=== PATIENT | female | born 1970 | race Caucasian/White ===

== ENCOUNTER 2022-08-19 12:52 | Emergency (ER) | payer BC ==
--- NOTE | 2022-08-19 13:19 | ERPHSYRPT ---
- History of Present Illness Time Seen by Provider: 08/19/22 13:19 Historian: patient, family Exam Limitations: no limitations Physician History: This is a morbidly obese 52-year-old white female has a history of diverticulitis, colitis and ureteral stones in the past and presents with 4 to 5-day history of bilateral lower quadrant abdominal pain and intermittent bloody stools. Patient states the pain was most severe today so she came into the emergency room for evaluation. Patient is a history of hypertension anxiety as well. She states that she is allergic to morphine and cannot take Dilaudid which she has tolerated in the past. She has no chest pain she has no shortness of breath. She has not had any vomiting. She has not had fevers. Patient states that she has Percocet at home that she uses on an as-needed basis for chronic back pain Timing/Duration: day(s) (4 to 5 days) Activities at Onset: none Quality: aching, cramping Abdominal Pain Onset Location: RLQ, LLQ Pain Radiation: no radiation Severity of Pain-Max: moderate Severity of Pain-Current: moderate Modifying Factors: Improves With: nothing Associated Symptoms: No chest pain, No diarrhea, No fever/chills, No shortness of breath, No vomiting, No weakness Previous symptoms: same symptoms as today Allergies/Adverse Reactions: morphine Allergy (Severe, Verified 08/19/22 13:24) Rash divalproex sodium [From Depakote] Adverse Reaction (Mild, Verified 08/19/22 13:24) Fatigue ketorolac [From Toradol] Adverse Reaction (Mild, Verified 08/19/22 13:24) Vomiting phenytoin [From Dilantin] Adverse Reaction (Mild, Verified 08/19/22 13:24) Fatigue Home Medications: Bupropion HCl 150 mg Sr [Wellbutrin SR 150 MG] 150 mg PO BID 08/19/22 [History] Clonazepam [Klonopin] 2 mg PO DAILY 08/19/22 [History] Olanzapine Odt 5 mg [Zyprexa Zydis 5 MG] 5 mg PO DAILY 08/19/22 [History] Pregabalin [Lyrica 150Mg] 150 mg PO DAILY 08/19/22 [History] Sertraline HCl [Zoloft] 200 mg PO DAILY 08/19/22 [History] Triamterene/Hydrochlorothiazid [Maxzide 37.5 mg-25 mg Tablet] 1 each PO DAILY 08/19/22 [History] Travel Risk - International Travel Have you traveled outside of the country in past 3 weeks: No - Coronavirus Screening Are you exhibiting any of the following symptoms?: No Close contact with a COVID-19 positive Pt in past 14-21 Days: No - Review of Systems Constitutional: No Symptoms Eyes: No Symptoms Ears, Nose, & Throat: No Symptoms Respiratory: No Symptoms Cardiac: No Symptoms Abdominal/Gastrointestinal: Abdominal Pain, Hematochezia (Intermittent episodes), No Nausea, No Vomiting, No Diarrhea, No Constipation Genitourinary Symptoms: No Symptoms Musculoskeletal: No Symptoms Skin: No Symptoms Neurological: No Symptoms Psychological: No Symptoms Endocrine: No Symptoms Hematologic/Lymphatic: No Symptoms Immunological/Allergic: No Symptoms All Other Systems: Reviewed and Negative - Past Medical History Pertinent Past Medical History: Yes - Past Surgical History Past Surgical History: Yes - Nursing Vital Signs Nursing Vital Signs: Initial Vital Signs Temperature 98.0 F 08/19/22 13:04 Pulse Rate 78 08/19/22 13:04 Respiratory Rate 20 08/19/22 13:04 Blood Pressure 151/85 08/19/22 13:04 O2 Sat by Pulse Oximetry 96 08/19/22 13:04 Pain Scale Pain Intensity 10 - Physical Exam General Appearance: no apparent distress, alert, anxiety, obese Eye Exam: PERRL/EOMI, eyes nml inspection Ears, Nose, Throat Exam: normal ENT inspection, moist mucous membranes Neck Exam: normal inspection, non-tender, supple, full range of motion Respiratory Exam: normal breath sounds, lungs clear, airway intact, No chest tenderness, No respiratory distress Cardiovascular Exam: regular rate/rhythm, normal heart sounds, normal peripheral pulses Gastrointestinal/Abdomen Exam: soft, normal bowel sounds, tenderness (Bilateral lower quadrant to palpation), guarding (Lateral lower quadrant to palpation), No rebound Pelvic Exam: not done Rectal Exam: not done Back Exam: normal inspection, normal range of motion, No CVA tenderness, No vertebral tenderness Extremity Exam: normal inspection, normal range of motion, pelvis stable Neurologic Exam: alert, oriented x 3, cooperative, color worker II-XII nml as tested, normal mood/affect, nml cerebellar function, nml station & gait, sensation nml Skin Exam: normal color, warm, dry Lymphatic Exam: No adenopathy SpO2 Interpretation: normal O2 Delivery: Room Air - Course Nursing assessment & vital signs reviewed: Yes Ordered Tests: Active Orders 24 hr Category Date Time Status IV Insertion STAT Care 08/19/22 13:37 Active ABDOMEN AND PELVIS W/0 CONTRAS [CT] Stat Exams 08/19/22 13:38 Taken AMYLASE Stat Lab 08/19/22 13:55 Completed CBC W DIFF Stat Lab 08/19/22 13:55 Completed CMP Stat Lab 08/19/22 13:55 Completed LIPASE Stat Lab 08/19/22 13:55 Completed Lactic Acid Stat Lab 08/19/22 14:00 Completed UA W/RFX CULTURE Stat Lab 08/19/22 13:15 Completed Medication Summary Generic Name Dose Route Start Last Admin Trade Name Freq PRN Reason Stop Dose Admin Piperacillin Sod/Tazobactam 100 mls @ 200 mls/hr 08/19/22 15:42 Sod 3.375 gm/ Sodium Chloride IV 08/19/22 16:11 STAT ONE Discontinued Medications Generic Name Dose Route Start Last Admin Trade Name Freq PRN Reason Stop Dose Admin Hydromorphone HCl 1 mg 08/19/22 13:37 08/19/22 14:10 Hydromorphone 1 Mg/1ml Inj 1 Mg/Ml Syringe IV 08/19/22 13:38 1 mg STAT ONE Administration Hydromorphone HCl Confirm 08/19/22 14:05 Hydromorphone 1 Mg/1ml Inj 1 Mg/Ml Syringe Administered 08/19/22 14:06 Dose 1 mg .ROUTE .STK-MED ONE Hydromorphone HCl 1 mg 08/19/22 15:43 Hydromorphone 1 Mg/1ml Inj 1 Mg/Ml Syringe IV 08/19/22 15:44 STAT ONE Sodium Chloride 1,000 mls @ 999 mls/hr 08/19/22 13:37 08/19/22 14:09 Sodium Chloride 0.9% 1000 Ml IV 08/19/22 14:37 999 mls/hr .Q1H1M STA Administration Sodium Chloride Confirm 08/19/22 14:06 Sodium Chloride 0.9% 1000 Ml Administered 08/19/22 14:07 Dose 1,000 mls @ ud .ROUTE .STK-MED ONE Ondansetron HCl 4 mg 08/19/22 13:37 08/19/22 14:10 Ondansetron Hcl 4 Mg/2 Ml Vial IV 08/19/22 13:38 4 mg STAT ONE Administration Ondansetron HCl Confirm 08/19/22 14:05 Ondansetron Hcl 4 Mg/2 Ml Vial Administered 08/19/22 14:06 Dose 4 mg .ROUTE .STK-MED ONE Prochlorperazine Edisylate 5 mg 08/19/22 15:43 Prochlorperazine Edisylate 10 Mg/2 Ml Vial IV 08/19/22 15:44 STAT ONE Lab/Rad Data: Laboratory Result Diagrams 08/19/22 13:55 08/19/22 13:55 Laboratory Results 08/19/22 08/19/22 08/19/22 Range/Units 14:00 13:55 13:55 WBC 7.6 (4.0-10.5) x10^3/uL RBC 4.82 (4.1-5.4) x10^6/uL Hgb 12.7 (12.0-16.0) g/dL Hct 42.4 (35-47) % MCV 88.0 (78-100) fL MCH 26.3 (26-32) pg MCHC 30.0 L (32-36) g/dL RDW 15.8 H (11.5-14.0) % Plt Count 346 (150-450) x10^3/uL MPV 10.8 (7.5-11.0) fL Gran % 66.0 (36.0-66.0) % Immature Gran % (Auto) 0.3 (0.00-0.4) % Nucleat RBC Rel Count 0.0 (0.00-0.1) % Eos # (Auto) 0.18 (0-0.5) x10^3/uL Immature Gran # (Auto) 0.02 (0.00-0.03) x10^3u/L Absolute Lymphs (auto) 1.82 (1.0-4.6) x10^3/uL Absolute Monos (auto) 0.48 (0.0-1.3) x10^3/uL Absolute Nucleated RBC 0.00 (0.00-0.01) x10^3u/L Lymphocytes % 23.9 L (24.0-44.0) % Monocytes % 6.3 (0.0-12.0) % Eosinophils % 2.4 (0.00-5.0) % Basophils % 1.1 (0.0-0.4) % Absolute Granulocytes 5.03 (1.4-6.9) x10^3/uL Basophils # 0.08 (0-0.4) x10^3/uL Sodium 142 (137-145) mmol/L Potassium 3.6 (3.5-5.1) mmol/L Chloride 112 H (98-107) mmol/L Carbon Dioxide 19 L (22-30) mmol/L Anion Gap 14.6 (5-15) MEQ/L BUN 19 H (7-17) mg/dL Creatinine 0.56 (0.52-1.04) mg/dL Estimated GFR > 60.0 ML/MIN Glucose 79 (74-106) mg/dL Lactic Acid 1.7 (0.4-2.0) Calcium 9.4 (8.4-10.2) mg/dL Total Bilirubin 0.40 (0.2-1.3) mg/dL AST 17 (14-36) U/L ALT 15 (0-35) U/L Alkaline Phosphatase 91 (38-126) U/L Serum Total Protein 7.3 (6.3-8.2) g/dL Albumin 4.1 (3.5-5.0) g/dL Amylase 91 (30-110) U/L Lipase 92 (23-300) U/L Urinalys Dipstick Clnc Urine Color (YELLOW) Urine Appearance (CLEAR) Urine pH (5-6) Ur Specific [place] (1.005-1.025) POC Urine Protein Conf (Negative) Urine Ketones (NEGATIVE) Urine Nitrite (NEGATIVE) Urine Bilirubin (NEGATIVE) Urine Urobilinogen (0-1) mg/dL Urine Leukocytes (NEGATIVE) Urine WBC (Auto) (0-5) /HPF Urine RBC (Auto) (0-2) /HPF U Epithel Cells (Auto) (FEW) /HPF Urine Bacteria (Auto) (NEGATIVE) /HPF Urine RBC (0-5) Issac/ul Ur Culture Indicated? Urine Glucose (NEGATIVE) mg/dL 08/19/22 Range/Units 13:15 WBC (4.0-10.5) x10^3/uL RBC (4.1-5.4) x10^6/uL Hgb (12.0-16.0) g/dL Hct (35-47) % MCV (78-100) fL MCH (26-32) pg MCHC (32-36) g/dL RDW (11.5-14.0) % Plt Count (150-450) x10^3/uL MPV (7.5-11.0) fL Gran % (36.0-66.0) % Immature Gran % (Auto) (0.00-0.4) % Nucleat RBC Rel Count (0.00-0.1) % Eos # (Auto) (0-0.5) x10^3/uL Immature Gran # (Auto) (0.00-0.03) x10^3u/L Absolute Lymphs (auto) (1.0-4.6) x10^3/uL Absolute Monos (auto) (0.0-1.3) x10^3/uL Absolute Nucleated RBC (0.00-0.01) x10^3u/L Lymphocytes % (24.0-44.0) % Monocytes % (0.0-12.0) % Eosinophils % (0.00-5.0) % Basophils % (0.0-0.4) % Absolute Granulocytes (1.4-6.9) x10^3/uL Basophils # (0-0.4) x10^3/uL Sodium (137-145) mmol/L Potassium (3.5-5.1) mmol/L Chloride (98-107) mmol/L Carbon Dioxide (22-30) mmol/L Anion Gap (5-15) MEQ/L BUN (7-17) mg/dL Creatinine (0.52-1.04) mg/dL Estimated GFR ML/MIN Glucose (74-106) mg/dL Lactic Acid (0.4-2.0) Calcium (8.4-10.2) mg/dL Total Bilirubin (0.2-1.3) mg/dL AST (14-36) U/L ALT (0-35) U/L Alkaline Phosphatase (38-126) U/L Serum Total Protein (6.3-8.2) g/dL Albumin (3.5-5.0) g/dL Amylase (30-110) U/L Lipase (23-300) U/L Urinalys Dipstick Clnc MAIN LAB Urine Color YELLOW (YELLOW) Urine Appearance CLEAR (CLEAR) Urine pH 5.5 (5-6) Ur Specific [place] 1.015 (1.005-1.025) POC Urine Protein Conf NEGATIVE (Negative) Urine Ketones NEGATIVE (NEGATIVE) Urine Nitrite NEGATIVE (NEGATIVE) Urine Bilirubin NEGATIVE (NEGATIVE) Urine Urobilinogen 0.2 (0-1) mg/dL Urine Leukocytes NEGATIVE (NEGATIVE) Urine WBC (Auto) NONE (0-5) /HPF Urine RBC (Auto) NONE (0-2) /HPF U Epithel Cells (Auto) RARE (FEW) /HPF Urine Bacteria (Auto) NONE (NEGATIVE) /HPF Urine RBC NEGATIVE (0-5) Issac/ul Ur Culture Indicated? NO Urine Glucose NEGATIVE (NEGATIVE) mg/dL - Progress Progress: improved Progress Note: 08/19/22 15:47 CAT scan of the abdomen pelvis without contrast shows mild diverticulitis. There is no evidence of any abscess, perforation or free air Counseled pt/family regarding: diagnosis, need for follow-up, rad results - Departure Departure Disposition: Home Clinical Impression: Diverticulitis Condition: Stable Critical Care Time: No Referrals: DOCTOR,NO FAMILY [Primary Care Provider] - Follow up/PCP as directed Additional Instructions: Clear liquids only. Advance your diet only when you little longer have pain. Take your antibiotics as prescribed. Prescriptions: Ondansetron ODT 4 MG [Zofran Odt 4 mg] 4 mg PO Q6H PRN PRN #10 tablet PRN Reason: Vomiting Ciprofloxacin [Cipro 500 MG] 500 mg PO BID #14 tablet Metronidazole 500 mg [Flagyl 500 MG] 500 mg PO TID #21 tablet
[2022-08-19 13:28] VITALS: BP 151/85
[2022-08-19] MEDS ORDERED: Sodium Chloride 0.9% 1000 ML 1,000 ML IV STA (13:37)
[2022-08-19] MEDS ORDERED: Zofran 4 MG/2 ML VIAL IV ONE (13:37)
[2022-08-19] MEDS ORDERED: Hydromorphone 1 mg/ml Injection IV ONE ×2 (13:37→15:43)
[2022-08-19 14:03] LABS: Absolute Neutrophil Ct (ANC) 5.03 x10^3/uL (1.4-6.9); Basophil (Absolute #) 0.08 x10^3/uL (0-0.4); Eosinophil % 2.4 % (0.00-5.0); Eosinophil (Absolute #) 0.18 x10^3/uL (0-0.5); Hematocrit 42.4 % (35-47); Hemoglobin 12.7 g/dL (12.0-16.0); Lymphocyte (Absolute #) 1.82 x10^3/uL (1.0-4.6); Lymphocytes % 23.9 % (24.0-44.0); Mean Corpuscular Hemoglobin 26.3 pg (26-32); Mean Platelet Volume 10.8 fL (7.5-11.0); Monocyte (Absolute #) 0.48 x10^3/uL (0.0-1.3); Monocytes % 6.3 % (0.0-12.0); Platelet Count 346 x10^3/uL (150-450); Red Blood Count 4.82 x10^6/uL (4.1-5.4); Red Cell Distribution Width 15.8 % (11.5-14.0); White Blood Count 7.6 x10^3/uL (4.0-10.5)
[2022-08-19] MEDS ORDERED: Hydromorphone 1 mg/ml Injection ONE ×2 (14:05→15:58)
[2022-08-19] MEDS ORDERED: Zofran 4 MG/2 ML VIAL ONE (14:05)
[2022-08-19] MEDS ORDERED: Sodium Chloride 0.9% 1000 ML 1,000 ML ONE (14:06)
[2022-08-19 14:18] LABS: Appearance CLEAR (CLEAR); Bilirubin NEGATIVE (NEGATIVE); Dipstick done @ ? MAIN LAB; Epithelial Cells RARE /HPF (FEW); Glucose NEGATIVE (NEGATIVE); Ketones NEGATIVE (NEGATIVE); Nitrite NEGATIVE (NEGATIVE); Ph 5.5 (5-6); Protein,Urine Dip NEGATIVE (Negative); RBC NEGATIVE Ery/ul (0-5); Specific Gravity 1.015 (1.005-1.025); Urobilinogen 0.2 mg/dL (0-1)
[2022-08-19 14:20] LABS: Urine Cultured Indicated? NO
[2022-08-19 15:24] LABS: ALBUMIN 4.1 g/dL (3.5-5.0); ALKALINE PHOSPHATASE 91 U/L (38-126); AMYLASE 91 U/L (30-110); BLOOD UREA NITROGEN 19 mg/dL (7-17); CHLORIDE 112 mmol/L (98-107); Calcium 9.4 mg/dL (8.4-10.2); Carbon Dioxide 19 mmol/L (22-30); Creatinine 1 0.56 mg/dL (0.52-1.04); EST GLOMERULAR FILTRATION RATE > 60.0 ML/MIN; Glucose 79 mg/dL (74-106); LIPASE 92 U/L (23-300); Potassium 3.6 mmol/L (3.5-5.1); SGOT/AST 17 U/L (14-36); SGPT/ALT 15 U/L (0-35); SODIUM 142 mmol/L (137-145); Total Protein 7.3 g/dL (6.3-8.2)
[2022-08-19 15:27] LABS: ANION GAP 14.6 MEQ/L (5-15)
[2022-08-19] MEDS ORDERED: PIPERACILLIN/TAZOBACTAM 3.375 GM in Sodium Chloride 100ML MINI-BAG PLUS 100 ML IV ONE (15:42)
[2022-08-19] MEDS ORDERED: Compazine 10 MG/2 ML IV ONE (15:43)
[2022-08-19] MEDS ORDERED: PIPERACILLIN/TAZOBACTAM IV ONE (15:58)
[2022-08-19] MEDS ORDERED: Compazine 10 MG/2 ML ONE (15:58)
[2022-08-19] MEDS ORDERED: Sodium Chloride 100ML MINI-BAG PLUS 100 ML IV ONE (15:59)
[2022-08-19 17:03] VITALS: PULSE 80; O2SAT 98
--- NOTE | 2022-08-19 19:37 | XRAY ---
Indication: Left abdomen pain 1 week. Nausea, vomiting, and bloody stools. Multiple contiguous axial images obtained through the abdomen and pelvis without contrast. Comparison: None Lung bases demonstrates mild bibasilar dependent atelectasis. Heart not enlarged. Noncontrasted stomach and bowel loops appear nonobstructed with normal appendix. Mild scattered colonic diverticulosis. Distal descending and mid to proximal sigmoid colon demonstrates mild pericolonic stranding favoring diverticulitis. Previous hysterectomy. No free fluid/air. A few bilateral renal hyperdense lesions, largest on the left measuring 1 cm, either calcified versus hemorrhagic cysts. Also nonobstructing left renal punctate calculus. Remaining liver, gallbladder, pancreas, spleen, adrenal glands, kidneys, ureters, and bladder are unremarkable for noncontrast exam. Minimal aortoiliac calcifications without AAA. Osseous structures intact. Impression: 1. Mild distal descending and proximal sigmoid diverticulitis. No complications. 2. Small bilateral renal calcified versus hemorrhagic cysts. 3. Nonobstructing left renal punctate calculus. Comment: Preliminary interpretation made by [facility]. No critical discrepancy.
== END 2022-08-19 17:03 | disposition home or self-care (01) ==
LOC: ED 12:52
DX: K57.92 Diverticulitis of intestine, part unspecified, without perforation or abscess without bleeding (principal); R10.31 Right lower quadrant pain; R10.32 Left lower quadrant pain; I10 Essential (primary) hypertension; Z79.891 Long term (current) use of opiate analgesic; Z79.899 Other long term (current) drug therapy
CPT/HCPCS: 36000; 36415; 74176; 80053; 81015; 82150; 83605; 83690; 85025; 96360; 96365; 96374; 96375; 96376; 99284; J1170; J2405

== ENCOUNTER 2022-08-20 11:13 | Emergency (ER) | payer BC ==
[2022-08-20 11:29] VITALS: BP 129/89; PULSE 77; O2SAT 98
[2022-08-20] MEDS ORDERED: Sodium Chloride 0.9% 1000 ML 1,000 ML IV STA (12:07)
[2022-08-20] MEDS ORDERED: HYDROCODONE-ACETAMIN 10-325 MG PO STA (12:07)
[2022-08-20] MEDS ORDERED: Zofran 4 MG/2 ML VIAL IV ONE (12:07)
[2022-08-20 12:39] LABS: Absolute Neutrophil Ct (ANC) 4.14 x10^3/uL (1.4-6.9); Basophil (Absolute #) 0.05 x10^3/uL (0-0.4); Eosinophil % 2.8 % (0.00-5.0); Eosinophil (Absolute #) 0.18 x10^3/uL (0-0.5); Hematocrit 40.4 % (35-47); Hemoglobin 12.7 g/dL (12.0-16.0); Lymphocyte (Absolute #) 1.68 x10^3/uL (1.0-4.6); Mean Cell Volume 85.1 fL (78-100); Mean Corpuscular Hemoglobin 26.7 pg (26-32); Mean Corpuscular Hgb Concent. 31.4 g/dL (32-36); Mean Platelet Volume 9.9 fL (7.5-11.0); Monocyte (Absolute #) 0.39 x10^3/uL (0.0-1.3); Neutrophil % 64.1 % (36.0-66.0); Platelet Count 405 x10^3/uL (150-450); Red Blood Count 4.75 x10^6/uL (4.1-5.4); Red Cell Distribution Width 15.4 % (11.5-14.0); White Blood Count 6.5 x10^3/uL (4.0-10.5)
[2022-08-20 12:56] LABS: ALBUMIN 4.6 g/dL (3.5-5.0); ALKALINE PHOSPHATASE 105 U/L (38-126); ANION GAP 11.6 MEQ/L (5-15); BLOOD UREA NITROGEN 18 mg/dL (7-17); CHLORIDE 109 mmol/L (98-107); Calcium 9.8 mg/dL (8.4-10.2); Carbon Dioxide 24 mmol/L (22-30); Creatinine 1 0.57 mg/dL (0.52-1.04); EST GLOMERULAR FILTRATION RATE > 60.0 ML/MIN; Glucose 85 mg/dL (74-106); Potassium 3.8 mmol/L (3.5-5.1); SGOT/AST 23 U/L (14-36); SGPT/ALT 16 U/L (0-35); SODIUM 141 mmol/L (137-145); Total Protein 7.9 g/dL (6.3-8.2)
[2022-08-20 13:07] LABS: Appearance CLEAR (CLEAR)
[2022-08-20 13:08] LABS: Bilirubin NEGATIVE (NEGATIVE); Dipstick done @ ? MAIN LAB; Glucose NEGATIVE (NEGATIVE); Ketones NEGATIVE (NEGATIVE); Nitrite NEGATIVE (NEGATIVE); Protein,Urine Dip NEGATIVE (Negative); RBC NEGATIVE Ery/ul (0-5); Urobilinogen 0.2 mg/dL (0-1)
[2022-08-20 13:31] LABS: Urine Cultured Indicated? NO
--- NOTE | 2022-08-20 14:08 | ERPHSYRPT ---
- History of Present Illness Time Seen by Provider: 08/20/22 11:51 Historian: patient Exam Limitations: no limitations Patient Subjective Stated Complaint: Abdominal pain Triage Nursing Assessment: Patient ambulated back to ED and transferred self to bed. Patient A+O X3. Patient's skin pink, warm and dry. Patient was seen in ER yesterday and dx with diverticulitis and given meds. Patient states her pain is 10/10 and complains of nausea and diarrhea. Physician History: 52 years old female with history of anxiety, depression, diverticulitis/colitis in the past who was diagnosed with mild diverticulitis yesterday presented in the ER with chief complaint of increasing pain and nausea and difficulty holding Flagyl down. Patient reports she is not taking any antiemetics. Pain is moderate to severe sharp with associated diarrhea. No fever or chills reported. Patient reports "it is the pain that brought me back". Reports pain comes and goes and last for almost 5 minutes and improves on its own. Timing/Duration: day(s) (5), gradual onset, worse Activities at Onset: rest Quality: sharpness Abdominal Pain Onset Location: LLQ Severity of Pain-Max: severe Severity of Pain-Current: severe Modifying Factors: Improves With: nothing Associated Symptoms: diarrhea, nausea Previous symptoms: same symptoms as today Allergies/Adverse Reactions: morphine Allergy (Severe, Verified 08/20/22 11:23) Rash divalproex sodium [From Depakote] Adverse Reaction (Mild, Verified 08/20/22 11:23) Fatigue ketorolac [From Toradol] Adverse Reaction (Mild, Verified 08/20/22 11:23) Vomiting phenytoin [From Dilantin] Adverse Reaction (Mild, Verified 08/20/22 11:23) Fatigue Home Medications: Bupropion HCl 150 mg Sr [Wellbutrin SR 150 MG] 150 mg PO BID 08/19/22 [History] Clonazepam [Klonopin] 2 mg PO DAILY 08/19/22 [History] Olanzapine Odt 5 mg [Zyprexa Zydis 5 MG] 5 mg PO DAILY 08/19/22 [History] Pregabalin [Lyrica 150Mg] 150 mg PO DAILY 08/19/22 [History] Sertraline HCl [Zoloft] 200 mg PO DAILY 08/19/22 [History] Triamterene/Hydrochlorothiazid [Maxzide 37.5 mg-25 mg Tablet] 1 each PO DAILY 08/19/22 [History] Hx Tetanus, Diphtheria Vaccination/Date Given: Yes Hx Influenza Vaccination/Date Given: Yes Hx Pneumococcal Vaccination/Date Given: No Immunizations Up to Date: Yes Travel Risk - International Travel Have you traveled outside of the country in past 3 weeks: No - Coronavirus Screening Are you exhibiting any of the following symptoms?: No Close contact with a COVID-19 positive Pt in past 14-21 Days: No - Vaccine Status Have you recieved a Covid-19 vaccination: Yes 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: Moderna - Vaccination Dates Date of 2cond Vaccination (if applicable): unk - Review of Systems Constitutional: No Symptoms Eyes: No Symptoms Ears, Nose, & Throat: No Symptoms Respiratory: No Symptoms Cardiac: No Symptoms Abdominal/Gastrointestinal: Abdominal Pain, Nausea, Diarrhea Genitourinary Symptoms: No Symptoms Musculoskeletal: No Symptoms Skin: No Symptoms Neurological: No Symptoms Psychological: No Symptoms Endocrine: No Symptoms Hematologic/Lymphatic: No Symptoms Immunological/Allergic: No Symptoms - Past Medical History Pertinent Past Medical History: Yes Neurological History: Migraines GI Medical History: Colitis, Diverticulitis History: Other Other Medical History: hx of kidney stones - Past Surgical History Past Surgical History: Yes Gastrointestinal: Hemorrhoidectomy Musculoskeletal: Joint Replacement Female Surgical History: Hysterectomy - Social History Smoking Status: Current every day smoker How long have you smoked: 15 Exposure to second hand smoke: No Drug Use: none Patient Lives Alone: No - Nursing Vital Signs Nursing Vital Signs: Initial Vital Signs Temperature 96.8 F 08/20/22 11:24 Pulse Rate 77 08/20/22 11:24 Respiratory Rate 18 08/20/22 11:24 Blood Pressure 129/89 08/20/22 11:24 O2 Sat by Pulse Oximetry 98 08/20/22 11:24 Pain Scale Pain Intensity 10 - Physical Exam General Appearance: no apparent distress, alert Eye Exam: PERRL/EOMI, eyes nml inspection Ears, Nose, Throat Exam: normal ENT inspection, pharynx normal Neck Exam: normal inspection, supple, full range of motion Respiratory Exam: normal breath sounds, lungs clear Cardiovascular Exam: regular rate/rhythm, normal heart sounds Gastrointestinal/Abdomen Exam: soft, normal bowel sounds, tenderness (Left lower quadrant/suprapubic area with no guarding or rebound tenderness) Back Exam: normal inspection Extremity Exam: normal inspection, normal range of motion Neurologic Exam: alert, oriented x 3, cooperative Skin Exam: normal color SpO2 Interpretation: normal SpO2: 98 O2 Delivery: Room Air Ordered Tests: Active Orders 24 hr Category Date Time Status IV Insertion STAT Care 08/20/22 12:07 Active CBC W DIFF Stat Lab 08/20/22 12:45 Completed CMP Stat Lab 08/20/22 12:45 Completed Lactic Acid Stat Lab 08/20/22 12:45 Completed UA W/RFX CULTURE Stat Lab 08/20/22 12:52 Completed Medication Summary Discontinued Medications Generic Name Dose Route Start Last Admin Trade Name Freq PRN Reason Stop Dose Admin Hydrocodone Bitart/Acetaminophen 1 tablet 08/20/22 12:07 08/20/22 12:21 Hydrocodone/Acetamin 10-325 Mg Tablet PO 08/20/22 12:08 1 tablet ONCE STA Administration Sodium Chloride 1,000 mls @ 999 mls/hr 08/20/22 12:07 08/20/22 12:39 Sodium Chloride 0.9% 1000 Ml IV 08/20/22 13:07 Not Given .Q1H1M STA Ondansetron HCl 4 mg 08/20/22 12:07 08/20/22 12:39 Ondansetron Hcl 4 Mg/2 Ml Vial IV 08/20/22 12:08 Not Given STAT ONE Lab/Rad Data: Laboratory Result Diagrams 08/20/22 12:45 08/20/22 12:45 Laboratory Results 08/20/22 08/20/22 08/20/22 Range/Units 12:52 12:45 12:45 WBC (4.0-10.5) x10^3/uL RBC (4.1-5.4) x10^6/uL Hgb (12.0-16.0) g/dL Hct (35-47) % MCV (78-100) fL MCH (26-32) pg MCHC (32-36) g/dL RDW (11.5-14.0) % Plt Count (150-450) x10^3/uL MPV (7.5-11.0) fL Gran % (36.0-66.0) % Immature Gran % (Auto) (0.00-0.4) % Nucleat RBC Rel Count (0.00-0.1) % Eos # (Auto) (0-0.5) x10^3/uL Immature Gran # (Auto) (0.00-0.03) x10^3u/L Absolute Lymphs (auto) (1.0-4.6) x10^3/uL Absolute Monos (auto) (0.0-1.3) x10^3/uL Absolute Nucleated RBC (0.00-0.01) x10^3u/L Lymphocytes % (24.0-44.0) % Monocytes % (0.0-12.0) % Eosinophils % (0.00-5.0) % Basophils % (0.0-0.4) % Absolute Granulocytes (1.4-6.9) x10^3/uL Basophils # (0-0.4) x10^3/uL Sodium 141 (137-145) mmol/L Potassium 3.8 (3.5-5.1) mmol/L Chloride 109 H (98-107) mmol/L Carbon Dioxide 24 (22-30) mmol/L Anion Gap 11.6 (5-15) MEQ/L BUN 18 H (7-17) mg/dL Creatinine 0.57 (0.52-1.04) mg/dL Estimated GFR > 60.0 ML/MIN Glucose 85 (74-106) mg/dL Lactic Acid 1.8 (0.4-2.0) Calcium 9.8 (8.4-10.2) mg/dL Total Bilirubin 0.40 (0.2-1.3) mg/dL AST 23 (14-36) U/L ALT 16 (0-35) U/L Alkaline Phosphatase 105 (38-126) U/L Serum Total Protein 7.9 (6.3-8.2) g/dL Albumin 4.6 (3.5-5.0) g/dL Urinalys Dipstick Clnc MAIN LAB Urine Color YELLOW (YELLOW) Urine Appearance CLEAR (CLEAR) Urine pH 6.0 (5-6) Ur Specific Orange 1.020 (1.005-1.025) POC Urine Protein Conf NEGATIVE (Negative) Urine Ketones NEGATIVE (NEGATIVE) Urine Nitrite NEGATIVE (NEGATIVE) Urine Bilirubin NEGATIVE (NEGATIVE) Urine Urobilinogen 0.2 (0-1) mg/dL Urine Leukocytes NEGATIVE (NEGATIVE) Urine WBC (Auto) NONE (0-5) /HPF Urine RBC (Auto) NONE (0-2) /HPF U Epithel Cells (Auto) NONE (FEW) /HPF Urine Bacteria (Auto) NONE (NEGATIVE) /HPF Urine RBC NEGATIVE (0-5) Issac/ul Other Casts (Auto) NEGATIVE (NEGATIVE) /LPF Ur Culture Indicated? NO Urine Glucose NEGATIVE (NEGATIVE) mg/dL 08/20/22 Range/Units 12:45 WBC 6.5 (4.0-10.5) x10^3/uL RBC 4.75 (4.1-5.4) x10^6/uL Hgb 12.7 (12.0-16.0) g/dL Hct 40.4 (35-47) % MCV 85.1 (78-100) fL MCH 26.7 (26-32) pg MCHC 31.4 L (32-36) g/dL RDW 15.4 H (11.5-14.0) % Plt Count 405 (150-450) x10^3/uL MPV 9.9 (7.5-11.0) fL Gran % 64.1 (36.0-66.0) % Immature Gran % (Auto) 0.3 (0.00-0.4) % Nucleat RBC Rel Count 0.0 (0.00-0.1) % Eos # (Auto) 0.18 (0-0.5) x10^3/uL Immature Gran # (Auto) 0.02 (0.00-0.03) x10^3u/L Absolute Lymphs (auto) 1.68 (1.0-4.6) x10^3/uL Absolute Monos (auto) 0.39 (0.0-1.3) x10^3/uL Absolute Nucleated RBC 0.00 (0.00-0.01) x10^3u/L Lymphocytes % 26.0 (24.0-44.0) % Monocytes % 6.0 (0.0-12.0) % Eosinophils % 2.8 (0.00-5.0) % Basophils % 0.8 (0.0-0.4) % Absolute Granulocytes 4.14 (1.4-6.9) x10^3/uL Basophils # 0.05 (0-0.4) x10^3/uL Sodium (137-145) mmol/L Potassium (3.5-5.1) mmol/L Chloride (98-107) mmol/L Carbon Dioxide (22-30) mmol/L Anion Gap (5-15) MEQ/L BUN (7-17) mg/dL Creatinine (0.52-1.04) mg/dL Estimated GFR ML/MIN Glucose (74-106) mg/dL Lactic Acid (0.4-2.0) Calcium (8.4-10.2) mg/dL Total Bilirubin (0.2-1.3) mg/dL AST (14-36) U/L ALT (0-35) U/L Alkaline Phosphatase (38-126) U/L Serum Total Protein (6.3-8.2) g/dL Albumin (3.5-5.0) g/dL Urinalys Dipstick Clnc Urine Color (YELLOW) Urine Appearance (CLEAR) Urine pH (5-6) Ur Specific Orange (1.005-1.025) POC Urine Protein Conf (Negative) Urine Ketones (NEGATIVE) Urine Nitrite (NEGATIVE) Urine Bilirubin (NEGATIVE) Urine Urobilinogen (0-1) mg/dL Urine Leukocytes (NEGATIVE) Urine WBC (Auto) (0-5) /HPF Urine RBC (Auto) (0-2) /HPF U Epithel Cells (Auto) (FEW) /HPF Urine Bacteria (Auto) (NEGATIVE) /HPF Urine RBC (0-5) Issac/ul Other Casts (Auto) (NEGATIVE) /LPF Ur Culture Indicated? Urine Glucose (NEGATIVE) mg/dL - Progress Progress: improved, re-examined Progress Note: 08/20/22 14:14 52 years old is evaluated for abdominal pain from recent diagnosis of diverticulitis. Patient is upfront asking for shot of Dilaudid. She has not filled prescription of Zofran and is nauseated at home, given ODT Zofran and [place], on reevaluation her pain is much improved. No peritoneal signs on repeated evaluation. Nontoxic appearance, not in any distress. Normal white count, grossly unremarkable chemistries. I do not think patient needs another CT abdomen pelvis. She is here mainly for pain medication, when I told about plan of being discharged, she is asking for pain medications, she is advised to follow-up with her primary care and take Tylenol/ibuprofen as needed. She seems to have a little pain seeking behavior, I do not feel comfortable prescribing her pain medication and she is also taking Klonopin's and other anxiety medications. Discussed signs symptoms of worsening needing return to ER which she seems understanding. She is advised to fill her prescription of Zofran and take them as directed. Counseled pt/family regarding: lab results, diagnosis, need for follow-up - Departure Departure Disposition: Home Clinical Impression: Diverticulitis Condition: Stable Critical Care Time: No Referrals: DOCTOR,NO FAMILY [Primary Care Provider] - Follow up/PCP as directed Instructions: Severe Abdominal Pain, Adult (DC) Additional Instructions: Follow-up with your primary care for reevaluation in 1 to 2 days. Tylenol/ibuprofen as needed for pain. Clear liquids and slowly introduce soft and then regular diet. Drink plenty of fluids. Continue with antibiotics. Take Zofran as recommended. Return to ER for intractable abdominal pain, fever chills, vomiting/diarrhea etc.
== END 2022-08-20 14:24 | disposition home or self-care (01) ==
LOC: ED 11:13
DX: K57.92 Diverticulitis of intestine, part unspecified, without perforation or abscess without bleeding (principal); R10.32 Left lower quadrant pain; R11.2 Nausea with vomiting, unspecified; R19.7 Diarrhea, unspecified; Z72.0 Tobacco use; Z79.899 Other long term (current) drug therapy
CPT/HCPCS: 36415; 80053; 81015; 83605; 85025; 99282; A9270-GY

== ENCOUNTER 2022-09-13 10:22 | Emergency (ER) | payer BC ==
--- NOTE | 2022-09-13 10:30 | ERPHSYRPT ---
- History of Present Illness Time Seen by Provider: 09/13/22 10:30 Historian: patient Exam Limitations: no limitations Physician History: This is a 52-year-old white female who has no primary doctor and is morbidly obese and presents with recurrent left lower quadrant abdominal pain. The pain began 3 days and it has worsened. Is been associated nausea and vomiting. Patient has a history of recurrent diverticulitis, colitis and ureteral lithiasis. A CAT scan of the abdomen pelvis without contrast was performed on 08/19/2022 which showed mild diverticulitis in the sigmoid colon region. Patient has had 3 visits this August alone for similar complaints. Patient has a history of hypertension and anxiety as well. Patient states she cannot take morphine but has had Dilaudid on several occasions without any problems. Patient states that 2 or 3 weeks ago she did see her medical collector and at that time she did not have any symptoms so no intervention was recommended or performed. Timing/Duration: day(s) (3), worse Activities at Onset: none Quality: sharpness, stabbing Abdominal Pain Onset Location: LLQ Pain Radiation: LLQ Severity of Pain-Max: moderate Severity of Pain-Current: moderate Modifying Factors: Improves With: vomiting Associated Symptoms: nausea, vomiting Previous symptoms: same symptoms as today, recently seen, recently treated Allergies/Adverse Reactions: morphine Allergy (Severe, Verified 09/13/22 10:31) Rash divalproex sodium [From Depakote] Adverse Reaction (Mild, Verified 09/13/22 10:31) Fatigue ketorolac [From Toradol] Adverse Reaction (Mild, Verified 09/13/22 10:31) Vomiting phenytoin [From Dilantin] Adverse Reaction (Mild, Verified 09/13/22 10:31) Fatigue Home Medications: Bupropion HCl 150 mg Sr [Wellbutrin SR 150 MG] 150 mg PO BID 08/19/22 [History] Clonazepam [Klonopin] 2 mg PO DAILY 08/19/22 [History] Olanzapine Odt 5 mg [Zyprexa Zydis 5 MG] 5 mg PO DAILY 08/19/22 [History] Pregabalin [Lyrica 150Mg] 150 mg PO DAILY 08/19/22 [History] Sertraline HCl [Zoloft] 200 mg PO DAILY 08/19/22 [History] Triamterene/Hydrochlorothiazid [Maxzide 37.5 mg-25 mg Tablet] 1 each PO DAILY 08/19/22 [History] Hx Tetanus, Diphtheria Vaccination/Date Given: Yes Hx Influenza Vaccination/Date Given: Yes Hx Pneumococcal Vaccination/Date Given: No Travel Risk - International Travel Have you traveled outside of the country in past 3 weeks: No - Coronavirus Screening Are you exhibiting any of the following symptoms?: No Close contact with a COVID-19 positive Pt in past 14-21 Days: No - Vaccine Status Have you recieved a Covid-19 vaccination: Yes Prize Coordinator: Moderna - Vaccination Dates Date of 2cond Vaccination (if applicable): unk - Review of Systems Constitutional: No Symptoms Eyes: No Symptoms Ears, Nose, & Throat: No Symptoms Respiratory: No Symptoms Cardiac: No Symptoms Abdominal/Gastrointestinal: Abdominal Pain (Left lower quadrant), Nausea, Vomiting, No Diarrhea Genitourinary Symptoms: No Symptoms Musculoskeletal: No Symptoms Skin: No Symptoms Neurological: No Symptoms Psychological: No Symptoms Endocrine: No Symptoms Hematologic/Lymphatic: No Symptoms Immunological/Allergic: No Symptoms All Other Systems: Reviewed and Negative - Past Medical History Pertinent Past Medical History: Yes Neurological History: Migraines GI Medical History: Colitis, Diverticulitis History: Other Other Medical History: hx of kidney stones - Past Surgical History Past Surgical History: Yes Gastrointestinal: Hemorrhoidectomy Musculoskeletal: Joint Replacement Female Surgical History: Hysterectomy - Social History Smoking Status: Current every day smoker How long have you smoked: 15 Exposure to second hand smoke: No Drug Use: none Patient Lives Alone: No - Nursing Vital Signs Nursing Vital Signs: Initial Vital Signs Temperature 96.9 F 09/13/22 10:34 Pulse Rate 90 09/13/22 10:34 Respiratory Rate 19 09/13/22 10:34 Blood Pressure 117/91 09/13/22 10:34 O2 Sat by Pulse Oximetry 100 09/13/22 10:34 Pain Scale Pain Intensity 4 - Physical Exam General Appearance: mild distress, alert, anxiety, obese Eye Exam: PERRL/EOMI, eyes nml inspection Ears, Nose, Throat Exam: normal ENT inspection, moist mucous membranes Neck Exam: normal inspection, non-tender, supple, full range of motion Respiratory Exam: normal breath sounds, lungs clear, airway intact, No chest tenderness, No respiratory distress Cardiovascular Exam: regular rate/rhythm, normal heart sounds, normal peripheral pulses Gastrointestinal/Abdomen Exam: soft, normal bowel sounds, tenderness (Left lower quadrant), guarding (Left lower quadrant), rebound (Left lower quadrant) Pelvic Exam: not done Rectal Exam: not done Back Exam: normal inspection, normal range of motion, No CVA tenderness, No vertebral tenderness Extremity Exam: normal inspection, normal range of motion, pelvis stable Neurologic Exam: alert, oriented x 3, cooperative, tooth polisher II-XII nml as tested, normal mood/affect, nml cerebellar function, nml station & gait, sensation nml Skin Exam: normal color, warm, dry Lymphatic Exam: No adenopathy SpO2 Interpretation: normal O2 Delivery: Room Air - Course Nursing assessment & vital signs reviewed: Yes Ordered Tests: Active Orders 24 hr Category Date Time Status IV Insertion STAT Care 09/13/22 10:45 Active ABDOMEN AND PELVIS W/0 CONTRAS [CT] Stat Exams 09/13/22 10:46 Completed AMYLASE Stat Lab 09/13/22 10:49 Completed CBC W DIFF Stat Lab 09/13/22 10:49 Completed CMP Stat Lab 09/13/22 10:49 Completed LIPASE Stat Lab 09/13/22 10:49 Completed UA W/RFX CULTURE Stat Lab 09/13/22 10:49 Completed Medication Summary Discontinued Medications Generic Name Dose Route Start Last Admin Trade Name Dellq PRN Reason Stop Dose Admin Hydromorphone HCl 1 mg 09/13/22 10:45 09/13/22 10:52 Hydromorphone 1 Mg/1ml Inj 1 Mg/Ml Syringe IV 09/13/22 10:46 1 mg STAT ONE Administration Hydromorphone HCl Confirm 09/13/22 10:49 Hydromorphone 1 Mg/1ml Inj 1 Mg/Ml Syringe Administered 09/13/22 10:50 Dose 1 mg .ROUTE .STK-MED ONE Hydromorphone HCl 1 mg 09/13/22 12:16 Hydromorphone 1 Mg/1ml Inj 1 Mg/Ml Syringe IV 09/13/22 12:17 STAT ONE Sodium Chloride 1,000 mls @ 999 mls/hr 09/13/22 10:45 09/13/22 12:00 Sodium Chloride 0.9% 1000 Ml IV 09/13/22 11:45 Infused .Q1H1M STA Infusion Sodium Chloride Confirm 09/13/22 10:50 Sodium Chloride 0.9% 1000 Ml Administered 09/13/22 10:51 Dose 1,000 mls @ ud .ROUTE .STK-MED ONE Ondansetron HCl 4 mg 09/13/22 10:45 09/13/22 10:51 Ondansetron Hcl 4 Mg/2 Ml Vial IV 09/13/22 10:46 4 mg STAT ONE Administration Ondansetron HCl Confirm 09/13/22 10:49 Ondansetron Hcl 4 Mg/2 Ml Vial Administered 09/13/22 10:50 Dose 4 mg .ROUTE .STK-MED ONE Lab/Rad Data: Laboratory Result Diagrams 09/13/22 10:49 09/13/22 10:49 Laboratory Results 09/13/22 09/13/22 09/13/22 Range/Units 10:49 10:49 10:49 WBC 8.7 (4.0-10.5) x10^3/uL RBC 4.91 (4.1-5.4) x10^6/uL Hgb 12.8 (12.0-16.0) g/dL Hct 41.0 (35-47) % MCV 83.5 (78-100) fL MCH 26.1 (26-32) pg MCHC 31.2 L (32-36) g/dL RDW 15.4 H (11.5-14.0) % Plt Count 378 (150-450) x10^3/uL MPV 10.3 (7.5-11.0) fL Gran % 68.9 H (36.0-66.0) % Immature Gran % (Auto) 0.2 (0.00-0.4) % Nucleat RBC Rel Count 0.0 (0.00-0.1) % Eos # (Auto) 0.08 (0-0.5) x10^3/uL Immature Gran # (Auto) 0.02 (0.00-0.03) x10^3u/L Absolute Lymphs (auto) 1.87 (1.0-4.6) x10^3/uL Absolute Monos (auto) 0.66 (0.0-1.3) x10^3/uL Absolute Nucleated RBC 0.00 (0.00-0.01) x10^3u/L Lymphocytes % 21.6 L (24.0-44.0) % Monocytes % 7.6 (0.0-12.0) % Eosinophils % 0.9 (0.00-5.0) % Basophils % 0.8 (0.0-0.4) % Absolute Granulocytes 5.95 (1.4-6.9) x10^3/uL Basophils # 0.07 (0-0.4) x10^3/uL Sodium 140 (137-145) mmol/L Potassium 4.4 (3.5-5.1) mmol/L Chloride 108 H (98-107) mmol/L Carbon Dioxide 24 (22-30) mmol/L Anion Gap 12.8 (5-15) MEQ/L BUN 18 H (7-17) mg/dL Creatinine 0.52 (0.52-1.04) mg/dL Estimated GFR > 60.0 ML/MIN Glucose 92 (74-106) mg/dL Calcium 10.3 H (8.4-10.2) mg/dL Total Bilirubin 0.60 (0.2-1.3) mg/dL AST 19 (14-36) U/L ALT 15 (0-35) U/L Alkaline Phosphatase 90 (38-126) U/L Serum Total Protein 7.7 (6.3-8.2) g/dL Albumin 4.8 (3.5-5.0) g/dL Amylase 103 (30-110) U/L Lipase 180 (23-300) U/L Urinalys Dipstick Clnc MAIN LAB Urine Color YELLOW (YELLOW) Urine Appearance CLEAR (CLEAR) Urine pH 8.5 (5-6) Ur Specific [place] 1.015 (1.005-1.025) POC Urine Protein Conf NEGATIVE (Negative) Urine Ketones NEGATIVE (NEGATIVE) Urine Nitrite NEGATIVE (NEGATIVE) Urine Bilirubin NEGATIVE (NEGATIVE) Urine Urobilinogen 0.2 (0-1) mg/dL Urine Leukocytes NEGATIVE (NEGATIVE) Urine WBC (Auto) NONE (0-5) /HPF Urine RBC (Auto) NONE (0-2) /HPF U Epithel Cells (Auto) NONE (FEW) /HPF Urine Bacteria (Auto) NONE (NEGATIVE) /HPF Urine RBC NEGATIVE (0-5) Issac/ul Ur Culture Indicated? NO Urine Glucose NEGATIVE (NEGATIVE) mg/dL - Progress Progress: improved, pain not gone completely Progress Note: 09/13/22 12:38 CAT scan of the abdomen and pelvis without contrast shows no acute intra-a bdominal or intrapelvic process. Compared to prior CAT scans of the abdomen pelvis there is resolution of diverticulitis. Counseled pt/family regarding: lab results, diagnosis, need for follow-up, rad results - Departure Departure Disposition: Home Clinical Impression: Recurrent abdominal pain Condition: Stable Critical Care Time: No Referrals: DOCTOR,NO FAMILY [Primary Care Provider] - Follow up/PCP as directed Additional Instructions: Drink plenty of clear liquids before advancing your diet. Avoid fatty greasy spicy foods. Make arrangements for follow-up appointment with outpatient provider. We provided you with a list of names and phone numbers. Call your medical collector today to make arrangements for a follow-up appointment.
[2022-09-13] MEDS ORDERED: Sodium Chloride 0.9% 1000 ML 1,000 ML IV STA (10:45)
[2022-09-13] MEDS ORDERED: Hydromorphone 1 mg/ml Injection IV ONE ×2 (10:45→12:16)
[2022-09-13] MEDS ORDERED: Zofran 4 MG/2 ML VIAL IV ONE (10:45)
[2022-09-13] MEDS ORDERED: Hydromorphone 1 mg/ml Injection ONE ×2 (10:49→12:39)
[2022-09-13] MEDS ORDERED: Zofran 4 MG/2 ML VIAL ONE (10:49)
[2022-09-13] MEDS ORDERED: Sodium Chloride 0.9% 1000 ML 1,000 ML ONE (10:50)
[2022-09-13 10:51] LABS: Absolute Neutrophil Ct (ANC) 5.95 x10^3/uL (1.4-6.9); Basophil (Absolute #) 0.07 x10^3/uL (0-0.4); Eosinophil % 0.9 % (0.00-5.0); Eosinophil (Absolute #) 0.08 x10^3/uL (0-0.5); Hemoglobin 12.8 g/dL (12.0-16.0); Lymphocyte (Absolute #) 1.87 x10^3/uL (1.0-4.6); Lymphocytes % 21.6 % (24.0-44.0); Mean Cell Volume 83.5 fL (78-100); Mean Corpuscular Hemoglobin 26.1 pg (26-32); Mean Corpuscular Hgb Concent. 31.2 g/dL (32-36); Mean Platelet Volume 10.3 fL (7.5-11.0); Monocyte (Absolute #) 0.66 x10^3/uL (0.0-1.3); Monocytes % 7.6 % (0.0-12.0); Neutrophil % 68.9 % (36.0-66.0); Platelet Count 378 x10^3/uL (150-450); Red Blood Count 4.91 x10^6/uL (4.1-5.4); Red Cell Distribution Width 15.4 % (11.5-14.0); White Blood Count 8.7 x10^3/uL (4.0-10.5)
[2022-09-13 10:53] LABS: Appearance CLEAR (CLEAR); Bilirubin NEGATIVE (NEGATIVE); Dipstick done @ ? MAIN LAB; Glucose NEGATIVE (NEGATIVE); Ketones NEGATIVE (NEGATIVE); Nitrite NEGATIVE (NEGATIVE); Ph 8.5 (5-6); Protein,Urine Dip NEGATIVE (Negative); RBC NEGATIVE Ery/ul (0-5); Specific Gravity 1.015 (1.005-1.025); Urobilinogen 0.2 mg/dL (0-1)
[2022-09-13 10:57] LABS: Urine Cultured Indicated? NO
[2022-09-13 11:12] LABS: ALBUMIN 4.8 g/dL (3.5-5.0); ALKALINE PHOSPHATASE 90 U/L (38-126); AMYLASE 103 U/L (30-110); ANION GAP 12.8 MEQ/L (5-15); BLOOD UREA NITROGEN 18 mg/dL (7-17); CHLORIDE 108 mmol/L (98-107); Calcium 10.3 mg/dL (8.4-10.2); Carbon Dioxide 24 mmol/L (22-30); Creatinine 1 0.52 mg/dL (0.52-1.04); EST GLOMERULAR FILTRATION RATE > 60.0 ML/MIN; Glucose 92 mg/dL (74-106); LIPASE 180 U/L (23-300); Potassium 4.4 mmol/L (3.5-5.1); SGOT/AST 19 U/L (14-36); SGPT/ALT 15 U/L (0-35); SODIUM 140 mmol/L (137-145); Total Protein 7.7 g/dL (6.3-8.2)
--- NOTE | 2022-09-13 11:57 | XRAY ---
Indication: Left lower quadrant pain, vomiting, and low-grade fever. History diverticulitis/colitis. Multiple contiguous axial images obtained through the abdomen and pelvis without contrast. Comparison: August 19, 2022 Lung bases again demonstrates mild dependent atelectasis. Heart not enlarged. Noncontrasted stomach and bowel loops appear nonobstructed again with normal appendix and mild scattered colonic diverticulosis. Previous descending and sigmoid diverticulitis has resolved. Stable bilateral renal hypodense lesions again either calcified versus hemorrhagic cysts. Left kidney again demonstrates nonobstructing punctate calculus. No free fluid/air. Remaining liver, gallbladder, pancreas, spleen, adrenal glands, kidneys, ureters, and bladder are unremarkable for noncontrast exam. Again minimal aortoiliac calcifications without AAA. Impression: 1. Previous descending and sigmoid diverticulitis has resolved. 2. Stable bilateral renal calcified/hemorrhagic cysts and nonobstructing left renal punctate calculus. 3. Remaining CT abdomen/pelvis without contrast exam is negative.
[2022-09-13 13:22] VITALS: BP 104/70
[2022-09-13 14:05] VITALS: PULSE 72; O2SAT 96
== END 2022-09-13 14:08 | disposition home or self-care (01) ==
LOC: ED 10:22
DX: R10.32 Left lower quadrant pain (principal); R11.2 Nausea with vomiting, unspecified; I10 Essential (primary) hypertension; Z72.0 Tobacco use; Z79.899 Other long term (current) drug therapy
CPT/HCPCS: 36000; 36415; 74176; 80053; 81015; 82150; 83690; 85025; 96360; 96374; 96375; 96376; 99284; J1170; J2405

== ENCOUNTER 2022-09-14 13:21 | Emergency (ER) | payer BC ==
[2022-09-14 13:47] VITALS: BP 109/76; PULSE 82; O2SAT 98
[2022-09-14 15:13] LABS: Bacteria RARE /HPF (NEGATIVE); Epithelial Cells RARE /HPF (FEW); RBC 0-2 /HPF (0-2); WBC 0-2 /HPF (0-5)
[2022-09-14 15:16] LABS: Appearance CLEAR (CLEAR); Bilirubin NEGATIVE (NEGATIVE); Dipstick done @ ? MAIN LAB; Glucose NEGATIVE (NEGATIVE); Ketones NEGATIVE (NEGATIVE); Nitrite NEGATIVE (NEGATIVE); Protein,Urine Dip NEGATIVE (Negative); RBC NEGATIVE Ery/ul (0-5); Specific Gravity 1.015 (1.005-1.025); Urobilinogen 0.2 mg/dL (0-1)
[2022-09-14 15:17] LABS: Urine Cultured Indicated? NO
[2022-09-14 15:23] LABS: Amphetamine,Urine NEGATIVE (NEGATIVE); Barbiturate,Urine NEGATIVE (NEGATIVE); Benzodiazepine,Urine POSITIVE (NEGATIVE); Cocaine,Urine NEGATIVE (NEGATIVE); Methadone,Urine NEGATIVE (NEGATIVE); Opiate,Urine NEGATIVE (NEGATIVE); PCP,Urine NEGATIVE (NEGATIVE); THC,Urine NEGATIVE (NEGATIVE)
--- NOTE | 2022-09-14 19:48 | ERPHSYRPT ---
- History of Present Illness Historian: patient Exam Limitations: no limitations Patient Subjective Stated Complaint: " I was here yesterday, I think I may have an ulcer or something. I am passing blood and vomiting blood ". Triage Nursing Assessment: Pt presents to ER with complaints of vomiting blood and bloody stools. Pt is alert and oriented x 3. Skin is pink, warm, and dry. Pt is alert and oriented x 3. Able to comminicate and ambulate without difficulty. Pt is guarding abdomen but abdomen does not appear distended and is soft upon exam. Respirations are easy and unlabored at this time. States abdominal pain is 10/10 intermittent and cramping in nature. Hx of colitis. Bowel movements are black and bloody diarrhea occurring every couple of hours. Pt states vomiting bloody emesis every couple of hours also. Physician History: 52 yo wf who was seen yesterday in the ER presents w periumbilical abdominal pain/N/V/melena/hematemesis for 3 days. Pain is 10 on scale and described as throbbing. Nothing makes the pain better or worse. She denies dysuria/hematuria/fever/cough/coryza. Pt is a chronic pain pt who receives 180 Norco10 per month. Timing/Duration: other (3 days) Activities at Onset: rest Quality: throbbing Abdominal Pain Onset Location: periumbilical, generalized abdomen Severity of Pain-Max: severe Severity of Pain-Current: severe Modifying Factors: Improves With: nothing Associated Symptoms: denies symptoms, nausea, vomiting, No diarrhea Previous symptoms: same symptoms as today Allergies/Adverse Reactions: morphine Allergy (Severe, Verified 09/14/22 13:47) Rash divalproex sodium [From Depakote] Adverse Reaction (Mild, Verified 09/14/22 13:47) Fatigue ketorolac [From Toradol] Adverse Reaction (Mild, Verified 09/14/22 13:47) Vomiting phenytoin [From Dilantin] Adverse Reaction (Mild, Verified 09/14/22 13:47) Fatigue Home Medications: Bupropion HCl 150 mg Sr [Wellbutrin SR 150 MG] 150 mg PO BID 08/19/22 [History] Clonazepam [Klonopin] 2 mg PO DAILY 08/19/22 [History] Olanzapine Odt 5 mg [Zyprexa Zydis 5 MG] 5 mg PO DAILY 08/19/22 [History] Pregabalin [Lyrica 150Mg] 150 mg PO DAILY 08/19/22 [History] Sertraline HCl [Zoloft] 200 mg PO DAILY 08/19/22 [History] Triamterene/Hydrochlorothiazid [Maxzide 37.5 mg-25 mg Tablet] 1 each PO DAILY 08/19/22 [History] Hx Tetanus, Diphtheria Vaccination/Date Given: Yes Hx Influenza Vaccination/Date Given: Yes Hx Pneumococcal Vaccination/Date Given: No Travel Risk - International Travel Have you traveled outside of the country in past 3 weeks: No - Coronavirus Screening Are you exhibiting any of the following symptoms?: Yes Symptoms: Vomiting/Diarrhea Close contact with a COVID-19 positive Pt in past 14-21 Days: No - Vaccine Status Have you recieved a Covid-19 vaccination: Yes Learning Services Coordinator: Moderna - Vaccination Dates Date of 2cond Vaccination (if applicable): unk - Review of Systems Constitutional: No Symptoms, Malaise, Weakness Eyes: No Symptoms Ears, Nose, & Throat: No Symptoms Respiratory: No Symptoms Cardiac: No Symptoms Genitourinary Symptoms: No Symptoms Musculoskeletal: No Symptoms Skin: No Symptoms Neurological: No Symptoms Psychological: No Symptoms Endocrine: No Symptoms Hematologic/Lymphatic: No Symptoms Immunological/Allergic: No Symptoms - Past Medical History Pertinent Past Medical History: Yes Neurological History: Migraines GI Medical History: Colitis, Diverticulitis History: Other Other Medical History: hx of kidney stones - Past Surgical History Past Surgical History: Yes Gastrointestinal: Hemorrhoidectomy Musculoskeletal: Joint Replacement Female Surgical History: Hysterectomy - Social History Smoking Status: Current every day smoker How long have you smoked: 15 Exposure to second hand smoke: No Drug Use: none Patient Lives Alone: No - Nursing Vital Signs Nursing Vital Signs: Initial Vital Signs Pulse Rate 82 09/14/22 13:38 Respiratory Rate 18 09/14/22 13:38 Blood Pressure 109/76 09/14/22 13:38 O2 Sat by Pulse Oximetry 98 09/14/22 13:38 Pain Scale Pain Intensity 10 WNL - Physical Exam General Appearance: no apparent distress Eye Exam: PERRL/EOMI, eyes nml inspection Ears, Nose, Throat Exam: normal ENT inspection, TMs normal, pharynx normal, moist mucous membranes Neck Exam: normal inspection, non-tender, supple, full range of motion, No meningismus Respiratory Exam: normal breath sounds, lungs clear, airway intact Cardiovascular Exam: regular rate/rhythm, normal heart sounds, normal peripheral pulses, capillary refill <2 sec, No murmur Gastrointestinal/Abdomen Exam: soft, normal bowel sounds, tenderness (Moderate periumbilical TTP wo guarding or rebound) Back Exam: normal inspection, normal range of motion, No CVA tenderness, No vertebral tenderness Extremity Exam: normal inspection, normal range of motion Neurologic Exam: alert, oriented x 3, cooperative, homebound teacher II-XII nml as tested, normal mood/affect, nml cerebellar function, nml station & gait, sensation nml Skin Exam: normal color, warm, dry Lymphatic Exam: No adenopathy SpO2 Interpretation: normal SpO2: 98 O2 Delivery: Room Air - Course Nursing assessment & vital signs reviewed: Yes Ordered Tests: Active Orders 24 hr Category Date Time Status UA W/RFX CULTURE Stat Lab 09/14/22 Completed Urine Triage Profile Stat Lab 09/14/22 14:48 Completed Lab/Rad Data: Laboratory Results 09/14/22 09/14/22 Range/Units Unknown 14:48 Urinalys Dipstick Clnc MAIN LAB Urine Color YELLOW (YELLOW) Urine Appearance CLEAR (CLEAR) Urine pH 7.0 (5-6) Ur Specific [place] 1.015 (1.005-1.025) POC Urine Protein Conf NEGATIVE (Negative) Urine Ketones NEGATIVE (NEGATIVE) Urine Nitrite NEGATIVE (NEGATIVE) Urine Bilirubin NEGATIVE (NEGATIVE) Urine Urobilinogen 0.2 (0-1) mg/dL Urine Leukocytes NEGATIVE (NEGATIVE) Urine WBC (Auto) 0-2 (0-5) /HPF Urine RBC (Auto) 0-2 (0-2) /HPF U Epithel Cells (Auto) RARE (FEW) /HPF Urine Bacteria (Auto) RARE (NEGATIVE) /HPF Urine RBC NEGATIVE (0-5) Issac/ul Ur Culture Indicated? NO Urine Glucose NEGATIVE (NEGATIVE) mg/dL Urine Opiates Level NEGATIVE (NEGATIVE) Ur Methadone NEGATIVE (NEGATIVE) Urine Barbiturates NEGATIVE (NEGATIVE) Ur Phencyclidine (PCP) NEGATIVE (NEGATIVE) Urine Amphetamine NEGATIVE (NEGATIVE) U Benzodiazepine Level POSITIVE (NEGATIVE) Urine Cocaine NEGATIVE (NEGATIVE) Urine Marijuana (THC) NEGATIVE (NEGATIVE) - Progress Progress Note: 09/14/22 19:50 Pt eloped from ER before after exam and before labs were done. - Departure Departure Disposition: AMA (Eloped from ER) Clinical Impression: Recurrent abdominal pain Condition: Stable Critical Care Time: No Referrals: DOCTOR,NO FAMILY [Primary Care Provider] - Follow up/PCP as directed
== END 2022-09-14 15:15 | disposition left against medical advice (07) ==
LOC: ED 13:21
DX: R10.33 Periumbilical pain (principal); K92.0 Hematemesis; K92.1 Melena; Z72.0 Tobacco use; Z79.891 Long term (current) use of opiate analgesic; Z79.899 Other long term (current) drug therapy
CPT/HCPCS: 80307; 81015; 99282

== ENCOUNTER 2022-10-17 14:03 | Emergency (ER) | payer BC ==
[2022-10-17 14:18] VITALS: BP 108/59; PULSE 93; O2SAT 98
[2022-10-17] MEDS ORDERED: Sodium Chloride 0.9% 1000 ML 1,000 ML IV STA (14:37)
--- NOTE | 2022-10-17 14:56 | ERPHSYRPT ---
- History of Present Illness Time Seen by Provider: 10/17/22 14:25 Exam Limitations: no limitations Patient Subjective Stated Complaint: pt states that she is having a flair up of diverticulitis for the past 4 days and is having bloody stools and N&V and can't keep anything down Triage Nursing Assessment: Pt was brought by a friend to the ER, vitals wnl, rates pain as 06/28, pt's 6th visit since 08/19, pulses normal, skin n/w/d, walked to the room with no difficulties, doesn't appear to be in any distress Physician History: Patient is a 52-year-old female who presents with a 4-day flare of her diverticulitis she complains of nausea vomiting bloody diarrhea. She has pain in the left lower quadrant. She says she has had fever chills and sweats. She lives some distance away and is made 6 visits in in the last 2 months. Timing/Duration: day(s) (4) Activities at Onset: none Quality: cramping, throbbing Abdominal Pain Onset Location: LLQ Pain Radiation: no radiation Severity of Pain-Max: severe Severity of Pain-Current: moderate Modifying Factors: Improves With: defecating, vomiting Associated Symptoms: diarrhea, fever/chills, nausea, vomiting Previous symptoms: same symptoms as today Allergies/Adverse Reactions: morphine Allergy (Severe, Verified 10/17/22 14:18) Rash divalproex sodium [From Depakote] Adverse Reaction (Mild, Verified 10/17/22 14:18) Fatigue ketorolac [From Toradol] Adverse Reaction (Mild, Verified 10/17/22 14:18) Vomiting phenytoin [From Dilantin] Adverse Reaction (Mild, Verified 10/17/22 14:18) Fatigue Home Medications: Bupropion HCl 150 mg Sr [Wellbutrin SR 150 MG] 150 mg PO BID 08/19/22 [History] Clonazepam [Klonopin] 2 mg PO DAILY 08/19/22 [History] Olanzapine Odt 5 mg [Zyprexa Zydis 5 MG] 5 mg PO DAILY 08/19/22 [History] Pregabalin [Lyrica 150Mg] 150 mg PO DAILY 08/19/22 [History] Sertraline HCl [Zoloft] 200 mg PO DAILY 08/19/22 [History] Triamterene/Hydrochlorothiazid [Maxzide 37.5 mg-25 mg Tablet] 1 each PO DAILY 08/19/22 [History] Hx Tetanus, Diphtheria Vaccination/Date Given: Yes Hx Influenza Vaccination/Date Given: Yes Hx Pneumococcal Vaccination/Date Given: No Travel Risk - International Travel Have you traveled outside of the country in past 3 weeks: No - Coronavirus Screening Are you exhibiting any of the following symptoms?: No - Vaccine Status Have you recieved a Covid-19 vaccination: Yes Design Director: Moderna - Vaccination Dates Date of 2cond Vaccination (if applicable): 2020 - Review of Systems Constitutional: No Fever, No Chills Eyes: No Symptoms Ears, Nose, & Throat: No Symptoms Respiratory: No Cough, No Dyspnea Cardiac: No Chest Pain, No Edema, No Syncope Abdominal/Gastrointestinal: Abdominal Pain, Nausea, Vomiting, Diarrhea, Hematochezia Genitourinary Symptoms: No Dysuria Musculoskeletal: No Back Pain, No Neck Pain Skin: No Rash Neurological: No Dizziness, No Focal Weakness, No Sensory Changes Psychological: No Symptoms Endocrine: No Symptoms All Other Systems: Reviewed and Negative - Past Medical History Pertinent Past Medical History: Yes Neurological History: Migraines GI Medical History: Colitis, Diverticulitis History: Other Other Medical History: hx of kidney stones - Past Surgical History Past Surgical History: Yes Gastrointestinal: Hemorrhoidectomy Musculoskeletal: Joint Replacement Female Surgical History: Hysterectomy - Social History Smoking Status: Current every day smoker How long have you smoked: 15 Exposure to second hand smoke: Yes Drug Use: none Patient Lives Alone: No - Nursing Vital Signs Nursing Vital Signs: Initial Vital Signs Temperature 97.6 F 10/17/22 14:08 Pulse Rate 93 H 10/17/22 14:08 Blood Pressure 108/59 10/17/22 14:08 O2 Sat by Pulse Oximetry 98 10/17/22 14:08 Pain Scale Pain Intensity 8 - Physical Exam General Appearance: mild distress, alert Eye Exam: PERRL/EOMI, eyes nml inspection Ears, Nose, Throat Exam: normal ENT inspection, pharynx normal, moist mucous membranes Neck Exam: normal inspection, non-tender, supple, full range of motion Respiratory Exam: normal breath sounds, lungs clear, No respiratory distress Cardiovascular Exam: regular rate/rhythm, normal heart sounds Gastrointestinal/Abdomen Exam: soft, tenderness, No mass, No guarding, No rebound Back Exam: normal inspection, normal range of motion, No CVA tenderness, No vertebral tenderness Extremity Exam: normal inspection, normal range of motion, pelvis stable Neurologic Exam: alert, oriented x 3, cooperative, normal mood/affect, nml cerebellar function, sensation nml, No motor deficits Skin Exam: normal color, warm, dry SpO2: 98 - Course Nursing assessment & vital signs reviewed: Yes Ordered Tests: Active Orders 24 hr Category Date Time Status IV Insertion STAT Care 10/17/22 14:37 Active AMYLASE Stat Lab 10/17/22 14:37 Ordered CBC W DIFF Stat Lab 10/17/22 14:37 Ordered CMP Stat Lab 10/17/22 14:37 Ordered FECAL OCCULT BLOOD - SCREENING Stat Lab 10/17/22 Ordered LIPASE Stat Lab 10/17/22 14:37 Ordered Lactic Acid Stat Lab 10/17/22 14:37 Ordered UA W/RFX CULTURE Stat Lab 10/17/22 Ordered Medication Summary Generic Name Dose Route Start Last Admin Trade Name Freq PRN Reason Stop Dose Admin Sodium Chloride 1,000 mls @ 999 mls/hr 10/17/22 14:37 Sodium Chloride 0.9% 1000 Ml IV 10/17/22 15:37 .Q1H1M STA - Departure Departure Disposition: AMA Clinical Impression: Abdominal pain, Drug-seeking behavior Condition: Stable Critical Care Time: No Referrals: DOCTOR,NO FAMILY [Primary Care Provider] - Follow up/PCP as directed
== END 2022-10-17 15:11 | disposition left against medical advice (07) ==
LOC: ED 14:03
DX: R10.32 Left lower quadrant pain (principal); Z76.5 Malingerer [conscious simulation]; R11.2 Nausea with vomiting, unspecified; R19.7 Diarrhea, unspecified; R50.9 Fever, unspecified; Z79.899 Other long term (current) drug therapy; Z72.0 Tobacco use
CPT/HCPCS: 99281

== ENCOUNTER 2023-06-04 08:34 | Emergency (ER) | payer BC ==
[2023-06-04 09:04] VITALS: BP 129/82
--- NOTE | 2023-06-04 09:21 | ERPHSYRPT ---
- History of Present Illness Historian: patient Exam Limitations: no limitations Patient Subjective Stated Complaint: Pt reports she has been experiencing left lower quad abdominal pain for approx 2 weeks that has continued to worsen. Has been vomiting and having diarrhea since this weekend. Rates abdominal pain 8/10, sharp/throbbing in nature. 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 Triage Nursing Assessment: Pt alert and oriented x3. No apparent respiratory distress, easy nonlabored respirations. Ambulated to ED cot without difficulty. Skin w/p/d. No vomiting at this time, emesis bag provided. Hypoactive bowel sounds x4 quads. Physician History: 53 yo WF w LLQ pain x 2 wks. pain is described as 8/10 and throbbing. Nothing makes the pain better or worse. She has nausea/vomiting/bloody diarrhea. Pt denies fever/dysuria/hematuria/chest pain/cough/coryza. She is from [place], [place] and seems to have physicians in [place], [place] /[place], [place]. Pt has a h/o chronic pain/diverticulitis/multiple medical allergies. Timing/Duration: other (2 wks) Activities at Onset: rest Quality: throbbing Abdominal Pain Onset Location: LLQ Pain Radiation: no radiation Severity of Pain-Max: severe Severity of Pain-Current: severe Modifying Factors: Improves With: nothing Associated Symptoms: diarrhea, nausea, vomiting Previous symptoms: same symptoms as today Allergies/Adverse Reactions: morphine Allergy (Severe, Verified 06/04/23 08:56) Rash divalproex sodium [From Depakote] Adverse Reaction (Mild, Verified 06/04/23 08:56) Fatigue ketorolac [From Toradol] Adverse Reaction (Mild, Verified 06/04/23 08:56) Vomiting phenytoin [From Dilantin] Adverse Reaction (Mild, Verified 06/04/23 08:56) Fatigue dicyclomine [From Bentyl] Adverse Reaction (Verified 06/04/23 08:59) Nausea and Vomiting Home Medications: Clonazepam [Klonopin] 2 mg PO PRN 08/19/22 [History] Pregabalin [Lyrica 150Mg] 150 mg PO DAILY 08/19/22 [History] Sertraline HCl [Zoloft] 200 mg PO DAILY 08/19/22 [History] Triamterene/Hydrochlorothiazid [Maxzide 37.5 mg-25 mg Tablet] 1 each PO DAILY 08/19/22 [History] Hx Tetanus, Diphtheria Vaccination/Date Given: Yes Hx Influenza Vaccination/Date Given: Yes Hx Pneumococcal Vaccination/Date Given: No Travel Risk - International Travel Have you traveled outside of the country in past 3 weeks: No - Coronavirus Screening Are you exhibiting any of the following symptoms?: Yes Symptoms: Vomiting/Diarrhea Close contact with a COVID-19 positive Pt in past 14-21 Days: No - Vaccine Status Have you recieved a Covid-19 vaccination: Yes Scientific Systems Analyst: Moderna - Vaccination Dates Date of 2cond Vaccination (if applicable): 2020 - Review of Systems Constitutional: No Symptoms Eyes: No Symptoms Ears, Nose, & Throat: No Symptoms Respiratory: No Symptoms Cardiac: No Symptoms Genitourinary Symptoms: No Symptoms Musculoskeletal: No Symptoms Skin: No Symptoms Neurological: No Symptoms Psychological: No Symptoms Endocrine: No Symptoms Hematologic/Lymphatic: No Symptoms Immunological/Allergic: No Symptoms - Past Medical History Pertinent Past Medical History: Yes Neurological History: Migraines GI Medical History: Colitis, Diverticulitis History: Other Other Medical History: hx of kidney stones - Past Surgical History Past Surgical History: Yes Gastrointestinal: Hemorrhoidectomy Musculoskeletal: Joint Replacement, Orthopedic Surgery Female Surgical History: Hysterectomy - Social History Smoking Status: Former smoker How long have you smoked: 15 Exposure to second hand smoke: Yes Drug Use: none Patient Lives Alone: No - Nursing Vital Signs Nursing Vital Signs: Initial Vital Signs Temperature 97 F 06/04/23 08:49 Pulse Rate 87 06/04/23 08:49 Respiratory Rate 17 06/04/23 08:49 Blood Pressure 129/82 06/04/23 08:49 O2 Sat by Pulse Oximetry 95 06/04/23 08:49 Pain Scale Pain Intensity 8 WNL - Physical Exam General Appearance: no apparent distress Eye Exam: PERRL/EOMI, eyes nml inspection Ears, Nose, Throat Exam: normal ENT inspection, TMs normal, pharynx normal, moist mucous membranes Neck Exam: normal inspection, non-tender, supple, full range of motion, No meningismus, No mass, No Brudzinski, No Kernig's, No carotid bruit Respiratory Exam: normal breath sounds, lungs clear, airway intact Cardiovascular Exam: regular rate/rhythm, normal heart sounds, normal peripheral pulses, capillary refill <2 sec, No murmur Gastrointestinal/Abdomen Exam: soft, normal bowel sounds, tenderness (Moderate TTP LLQ wo guarding or rebound) Back Exam: normal inspection, normal range of motion, No CVA tenderness, No vertebral tenderness Extremity Exam: normal inspection, normal range of motion Neurologic Exam: alert, oriented x 3, cooperative, coin teller II-XII nml as tested, normal mood/affect, nml cerebellar function, nml station & gait, sensation nml Skin Exam: normal color, warm, dry Lymphatic Exam: No adenopathy SpO2 Interpretation: normal SpO2: 95 O2 Delivery: Room Air - Course Nursing assessment & vital signs reviewed: Yes - CT Exams Abdomen/Pelvis CT Interpretation: Discussed w/radiologist (Contrast from previous exam elsewhere/atelectasis/scarring/diverticulosis/hepatic hemangioma-cyst) Ordered Tests: Active Orders 24 hr Category Date Time Status ABDOMEN AND PELVIS W/0 CONTRAS [CT] Stat Exams 06/04/23 09:12 Completed AMYLASE Stat Lab 06/04/23 09:22 Completed CBC W DIFF Stat Lab 06/04/23 09:22 Completed CMP Stat Lab 06/04/23 09:22 Completed LIPASE Stat Lab 06/04/23 09:22 Completed TROPONIN Q4H Lab 06/04/23 09:22 Completed UA W/RFX UR CULTURE Stat Lab 06/04/23 09:13 Completed Urine Triage Profile Stat Lab 06/04/23 09:13 Completed Lab/Rad Data: Laboratory Result Diagrams 06/04/23 09:22 06/04/23 09:22 Laboratory Results 06/04/23 06/04/23 06/04/23 Range/Units 09:22 09:22 09:22 WBC 7.3 (4.0-10.5) x10^3/uL RBC 4.55 (4.1-5.4) x10^6/uL Hgb 12.6 (12.0-16.0) g/dL Hct 39.6 (35-47) % MCV 87.0 (78-100) fL MCH 27.7 (26-32) pg MCHC 31.8 L (32-36) g/dL RDW 16.2 H (11.5-14.0) % Plt Count 292 (150-450) x10^3/uL MPV 9.8 (7.5-11.0) fL Gran % 60.3 (36.0-66.0) % Immature Gran % (Auto) 0.3 (0.00-0.4) % Nucleat RBC Rel Count 0.0 (0.00-0.1) % Eos # (Auto) 0.17 (0-0.5) x10^3/uL Immature Gran # (Auto) 0.02 (0.00-0.03) x10^3u/L Absolute Lymphs (auto) 1.94 (1.0-4.6) x10^3/uL Absolute Monos (auto) 0.71 (0.0-1.3) x10^3/uL Absolute Nucleated RBC 0.00 (0.00-0.01) x10^3u/L Lymphocytes % 26.6 (24.0-44.0) % Monocytes % 9.7 (0.0-12.0) % Eosinophils % 2.3 (0.00-5.0) % Basophils % 0.8 (0.0-0.4) % Absolute Granulocytes 4.40 (1.4-6.9) x10^3/uL Basophils # 0.06 (0-0.4) x10^3/uL Sodium 139 (137-145) mmol/L Potassium 3.7 (3.5-5.1) mmol/L Chloride 102 (98-107) mmol/L Carbon Dioxide 30 (22-30) mmol/L Anion Gap 10.1 (5-15) MEQ/L BUN 20 H (7-17) mg/dL Creatinine 0.64 (0.52-1.04) mg/dL Estimated GFR > 60.0 ML/MIN Glucose 104 (74-106) mg/dL Calcium 9.2 (8.4-10.2) mg/dL Total Bilirubin 0.20 (0.2-1.3) mg/dL AST 36 (14-36) U/L ALT 33 (0-35) U/L Alkaline Phosphatase 69 (38-126) U/L Troponin I < 0.012 (0.000-0.034) ng/mL Serum Total Protein 7.1 (6.3-8.2) g/dL Albumin 4.0 (3.5-5.0) g/dL Amylase 60 (30-110) U/L Lipase 58 (23-300) U/L Urine Color (Yellow) Urine Appearance (Clear) Urine pH (4.6-8.0) Ur Specific Willard (1.005-1.030) Urine Protein (Negative) Urine Glucose (UA) (Negative) mg/dL Urine Ketones (Negative) Urine Blood (Negative) Urine Nitrite (Negative) Urine Bilirubin (Negative) Urine Urobilinogen (0.2) mg/dL Ur Leukocyte Esterase (Negative) U Hyaline Cast (Auto) (0-2) /LPF Urine Microscopic RBC (0-5) /HPF Urine Microscopic WBC (0-5) /HPF Ur Epithelial Cells (None Seen) /HPF Urine Bacteria (None Seen) /HPF Urine Culture Reflexed (NO) Urine Opiates Level (NEGATIVE) Ur Methadone (NEGATIVE) Urine Barbiturates (NEGATIVE) Ur Phencyclidine (PCP) (NEGATIVE) Urine Amphetamine (NEGATIVE) U Benzodiazepine Level (NEGATIVE) Urine Cocaine (NEGATIVE) Urine Marijuana (THC) (NEGATIVE) 06/04/23 06/04/23 Range/Units 09:13 09:13 WBC (4.0-10.5) x10^3/uL RBC (4.1-5.4) x10^6/uL Hgb (12.0-16.0) g/dL Hct (35-47) % MCV (78-100) fL MCH (26-32) pg MCHC (32-36) g/dL RDW (11.5-14.0) % Plt Count (150-450) x10^3/uL MPV (7.5-11.0) fL Gran % (36.0-66.0) % Immature Gran % (Auto) (0.00-0.4) % Nucleat RBC Rel Count (0.00-0.1) % Eos # (Auto) (0-0.5) x10^3/uL Immature Gran # (Auto) (0.00-0.03) x10^3u/L Absolute Lymphs (auto) (1.0-4.6) x10^3/uL Absolute Monos (auto) (0.0-1.3) x10^3/uL Absolute Nucleated RBC (0.00-0.01) x10^3u/L Lymphocytes % (24.0-44.0) % Monocytes % (0.0-12.0) % Eosinophils % (0.00-5.0) % Basophils % (0.0-0.4) % Absolute Granulocytes (1.4-6.9) x10^3/uL Basophils # (0-0.4) x10^3/uL Sodium (137-145) mmol/L Potassium (3.5-5.1) mmol/L Chloride (98-107) mmol/L Carbon Dioxide (22-30) mmol/L Anion Gap (5-15) MEQ/L BUN (7-17) mg/dL Creatinine (0.52-1.04) mg/dL Estimated GFR ML/MIN Glucose (74-106) mg/dL Calcium (8.4-10.2) mg/dL Total Bilirubin (0.2-1.3) mg/dL AST (14-36) U/L ALT (0-35) U/L Alkaline Phosphatase (38-126) U/L Troponin I (0.000-0.034) ng/mL Serum Total Protein (6.3-8.2) g/dL Albumin (3.5-5.0) g/dL Amylase (30-110) U/L Lipase (23-300) U/L Urine Color Yellow (Yellow) Urine Appearance Clear (Clear) Urine pH 6.5 (4.6-8.0) Ur Specific Willard >=1.030 A (1.005-1.030) Urine Protein Negative (Negative) Urine Glucose (UA) Negative (Negative) mg/dL Urine Ketones Negative (Negative) Urine Blood Negative (Negative) Urine Nitrite Negative (Negative) Urine Bilirubin Negative (Negative) Urine Urobilinogen 0.2 (0.2) mg/dL Ur Leukocyte Esterase Negative (Negative) U Hyaline Cast (Auto) NONE SEEN (0-2) /LPF Urine Microscopic RBC 0-2 (0-5) /HPF Urine Microscopic WBC 3-5 (0-5) /HPF Ur Epithelial Cells Moderate A (None Seen) /HPF Urine Bacteria None Seen (None Seen) /HPF Urine Culture Reflexed NO (NO) Urine Opiates Level POSITIVE (NEGATIVE) Ur Methadone NEGATIVE (NEGATIVE) Urine Barbiturates NEGATIVE (NEGATIVE) Ur Phencyclidine (PCP) NEGATIVE (NEGATIVE) Urine Amphetamine NEGATIVE (NEGATIVE) U Benzodiazepine Level POSITIVE (NEGATIVE) Urine Cocaine NEGATIVE (NEGATIVE) Urine Marijuana (THC) NEGATIVE (NEGATIVE) - Progress Progress Note: 06/04/23 14:39 Nursing note and vital signs reviewed No food or housing insecurities noted All lab results reviewed and shared w pt CT results reviewed and shared w pt Inspect done which demonstrated Gabapentin 200mg 05/24/23, Percocet 5 #60 05/23/23, Abdominal pain appears to be chronic in nature wo evidence of acute pathology. Pt discharged to follow up with her PCP/pain physician/GI specialist. Pt allergic to all viable non-narcotic pain med options 06/04/23 14:45 Counseled pt/family regarding: lab results, diagnosis, need for follow-up, rad results Medical Desision Making - Diagnostic Testing Diagnostic test were ordered, analyzed, and reviewed by me: Yes Radiological Interpretation: Reviewed by me, Discussed w/ radiologist - Risk of complications The pt has a mod risk of morbidity or mortality based on: Need for prescription drug management - Departure Departure Disposition: Home Clinical Impression: Abdominal pain Condition: Stable Critical Care Time: No Referrals: SIDDHARTHA JAEGER JR [Primary Care Provider] - Follow up/PCP as directed Instructions: Severe Abdominal Pain, Adult (DC) Additional Instructions: Follow up with your family MD and/or GI specialist and/or pain physician Return to ER for increasing pain or temperature greater than 100.5 Take your home pain meds as needed
[2023-06-04 09:26] LABS: BASOPHIL % 0.8 % (0.0-0.4); Basophil (Absolute #) 0.06 x10^3/uL (0-0.4); Eosinophil % 2.3 % (0.00-5.0); Eosinophil (Absolute #) 0.17 x10^3/uL (0-0.5); Hematocrit 39.6 % (35-47); Hemoglobin 12.6 g/dL (12.0-16.0); IMMATURE GRAN # 0.02 x10^3u/L (0.00-0.03); IMMATURE GRAN % 0.3 % (0.00-0.4); Lymphocyte (Absolute #) 1.94 x10^3/uL (1.0-4.6); Lymphocytes % 26.6 % (24.0-44.0); Mean Corpuscular Hemoglobin 27.7 pg (26-32); Mean Corpuscular Hgb Concent. 31.8 g/dL (32-36); Mean Platelet Volume 9.8 fL (7.5-11.0); Monocyte (Absolute #) 0.71 x10^3/uL (0.0-1.3); Monocytes % 9.7 % (0.0-12.0); Neutrophil % 60.3 % (36.0-66.0); Platelet Count 292 x10^3/uL (150-450); Red Blood Count 4.55 x10^6/uL (4.1-5.4); Red Cell Distribution Width 16.2 % (11.5-14.0); White Blood Count 7.3 x10^3/uL (4.0-10.5)
[2023-06-04 09:32] LABS: Appearance Clear (Clear); Bacteria None Seen /HPF (None Seen); Bilirubin Negative (Negative); Blood Negative (Negative); Epithelial Cells Moderate /HPF (None Seen); Glucose, Urine Negative (Negative); Hyaline Casts NONE SEEN /LPF (0-2); Ketones Negative (Negative); Leukocyte Esterase Negative (Negative); Nitrite Negative (Negative); Ph 6.5 (4.6-8.0); Protein,Urine Dip Negative (Negative); RBC 0-2 /HPF (0-5); Specific Gravity >=1.030 (1.005-1.030); Urobilinogen 0.2 mg/dL (0.2)
[2023-06-04 09:36] LABS: ADD URINE CULTURE? NO (NO)
[2023-06-04 09:46] LABS: Amphetamine,Urine NEGATIVE (NEGATIVE); Barbiturate,Urine NEGATIVE (NEGATIVE); Benzodiazepine,Urine POSITIVE (NEGATIVE); Cocaine,Urine NEGATIVE (NEGATIVE); Methadone,Urine NEGATIVE (NEGATIVE); Opiate,Urine POSITIVE (NEGATIVE); PCP,Urine NEGATIVE (NEGATIVE); THC,Urine NEGATIVE (NEGATIVE)
[2023-06-04 09:52] LABS: ALKALINE PHOSPHATASE 69 U/L (38-126); AMYLASE 60 U/L (30-110); ANION GAP 10.1 MEQ/L (5-15); BLOOD UREA NITROGEN 20 mg/dL (7-17); CHLORIDE 102 mmol/L (98-107); Calcium 9.2 mg/dL (8.4-10.2); Carbon Dioxide 30 mmol/L (22-30); Creatinine 1 0.64 mg/dL (0.52-1.04); EST GLOMERULAR FILTRATION RATE > 60.0 ML/MIN; Glucose 104 mg/dL (74-106); LIPASE 58 U/L (23-300); Potassium 3.7 mmol/L (3.5-5.1); SGOT/AST 36 U/L (14-36); SGPT/ALT 33 U/L (0-35); SODIUM 139 mmol/L (137-145); Total Protein 7.1 g/dL (6.3-8.2)
--- NOTE | 2023-06-04 10:11 | XRAY ---
Indication: Left lower quadrant pain. Blood in stool. Multiple contiguous axial images obtained through the abdomen and pelvis without contrast. Comparison: September 13, 2022 Lung bases again demonstrates subsegmental atelectasis/scarring bilaterally. Heart not enlarged. Stomach distended with food/fluid. Gallbladder contracted without gallstones. Noncontrasted stomach and bowel loops nonobstructed again with normal appendix. There remains mild descending and sigmoid diverticulosis without diverticulitis. New contrast in the system/urinary bladder. Grossly stable bilateral renal calcified lesions again largest left midpole measuring 1.3 cm. Stable 6 mm left lobe hepatic hemangioma/cyst and hysterectomy. No free fluid/air. Remaining liver, pancreas, spleen, adrenal glands, kidneys, ureters, and bladder are unremarkable. Again minimal aortoiliac calcifications without AAA. Osseous structures intact. Impression: 1. New contrast in system. Patient reports recent CT with contrast exam. 2. Again bibasilar atelectasis/scarring, colonic diverticulosis, indeterminate bilateral renal calcified lesions, hepatic hemangioma/cyst, and arteriosclerotic disease. 3. Remaining CT abdomen/pelvis without contrast exam continues to be negative.
[2023-06-04 10:33] VITALS: PULSE 81
[2023-06-04 14:44] VITALS: O2SAT 95
== END 2023-06-04 10:36 | disposition home or self-care (01) ==
LOC: ED 08:34
DX: R10.32 Left lower quadrant pain (principal); R11.2 Nausea with vomiting, unspecified; R19.7 Diarrhea, unspecified; Z79.899 Other long term (current) drug therapy
CPT/HCPCS: 36415; 74176; 80053; 80307; 81001; 82150; 83690; 84484; 85025; 99283

== ENCOUNTER 2023-06-14 22:27 | Emergency (ER) | payer BC ==
[2023-06-14 22:54] VITALS: TEMP 98.1
[2023-06-14] MEDS ORDERED: Zofran 4 MG/2 ML VIAL IV ONE (23:09)
[2023-06-14] MEDS ORDERED: Hydromorphone 1 mg/ml Injection IV ONE (23:09)
[2023-06-14] MEDS ORDERED: DECADRON 10MG INJ. IV ONE (23:10)
[2023-06-14] MEDS ORDERED: Zofran 4 MG/2 ML VIAL ONE (23:15)
[2023-06-14] MEDS ORDERED: DECADRON 10MG INJ. ONE (23:15)
[2023-06-14] MEDS ORDERED: Hydromorphone 1 mg/ml Injection ONE (23:16)
--- NOTE | 2023-06-14 23:18 | ERPHSYRPT ---
- History of Present Illness Time Seen by Provider: 06/14/23 22:31 Source: patient, family Exam Limitations: no limitations Patient Subjective Stated Complaint: pt states I have this chronic back pain and then today I started having incontinence Triage Nursing Assessment: pt ambulated into the er; pt is axo x4; c/o back pain; c/o incontinence; denies recent falls, trauma, or injury to back; skin PDW; no respiratory distress present; vitals wnl Physician History: 53-year-old female with history of hypertension, anxiety, chronic back pain presented in the ER with chief complaint of worsening back pain with radiation to left lower extremity with numbness and tingling sensation of the left. It got worse today and later on she started to have incontinence of urine. Patient reports perineal numbness as well. Patient is able to walk with a little limp because of worsening pain in the left lower extremity which hurts to put any weight. Denies any fall or trauma. No fever or chills reported. No loss of bowel control. Timing/Duration: today Quality: sharp Back Pain Location: lumbar spine Back Pain Radiation: buttocks, upper legs, lower legs Severity of Pain-Max: severe Severity of Pain-Current: severe Modifying Factors: Worsens With: movement Associated Symptoms: urinary incontinence, sensory/motor loss, tingling in legs/feet, lower back pain, No loss of bowel control Allergies/Adverse Reactions: morphine Allergy (Severe, Verified 06/14/23 22:44) Rash divalproex sodium [From Depakote] Adverse Reaction (Mild, Verified 06/14/23 22:44) Fatigue ketorolac [From Toradol] Adverse Reaction (Mild, Verified 06/14/23 22:44) Vomiting phenytoin [From Dilantin] Adverse Reaction (Mild, Verified 06/14/23 22:44) Fatigue dicyclomine [From Bentyl] Adverse Reaction (Verified 06/14/23 22:44) Nausea and Vomiting Home Medications: Clonazepam [Klonopin] 2 mg PO PRN 08/19/22 [History] Pregabalin [Lyrica 150Mg] 150 mg PO DAILY 08/19/22 [History] Sertraline HCl [Zoloft] 200 mg PO DAILY 08/19/22 [History] Triamterene/Hydrochlorothiazid [Maxzide 37.5 mg-25 mg Tablet] 1 each PO DAILY 08/19/22 [History] Hx Tetanus, Diphtheria Vaccination/Date Given: Yes Hx Influenza Vaccination/Date Given: Yes Hx Pneumococcal Vaccination/Date Given: No Travel Risk - International Travel Have you traveled outside of the country in past 3 weeks: No - Coronavirus Screening Are you exhibiting any of the following symptoms?: No Close contact with a COVID-19 positive Pt in past 14-21 Days: No - Vaccine Status Have you recieved a Covid-19 vaccination: Yes Audit Officer: Moderna - Vaccination Dates Date of 2cond Vaccination (if applicable): 2020 - Review of Systems Constitutional: No Symptoms Eyes: No Symptoms Ears, Nose, & Throat: No Symptoms Respiratory: No Symptoms Cardiac: No Symptoms Abdominal/Gastrointestinal: No Symptoms Genitourinary Symptoms: Incontinence Musculoskeletal: Back Pain Skin: No Symptoms Neurological: Parasthesia, Sensory Changes Psychological: Anxiety Hematologic/Lymphatic: No Symptoms Immunological/Allergic: No Symptoms - Past Medical History Pertinent Past Medical History: Yes Neurological History: Migraines GI Medical History: Colitis, Diverticulitis History: Other Other Medical History: hx of kidney stones - Past Surgical History Past Surgical History: Yes Gastrointestinal: Hemorrhoidectomy Musculoskeletal: Joint Replacement, Orthopedic Surgery Female Surgical History: Hysterectomy - Social History Smoking Status: Former smoker How long have you smoked: 15 Exposure to second hand smoke: Yes Drug Use: none Patient Lives Alone: No - Nursing Vital Signs Nursing Vital Signs: Initial Vital Signs Temperature 98.1 F 06/14/23 22:46 Pulse Rate 92 H 06/14/23 22:46 Respiratory Rate 18 06/14/23 22:46 Blood Pressure 121/78 06/14/23 22:46 O2 Sat by Pulse Oximetry 94 L 06/14/23 22:46 Pain Scale Pain Intensity [Left Back] 7 Pain Intensity 9 - Physical Exam General Appearance: no apparent distress, alert Eye Exam: PERRL/EOMI Ears, Nose, Throat Exam: normal ENT inspection Neck Exam: normal inspection, full range of motion Respiratory Exam: normal breath sounds, lungs clear Cardiovascular Exam: regular rate/rhythm, normal heart sounds Gastrointestinal Exam: soft, normal bowel sounds, No tenderness Rectal Exam: decreased tone, other (Loss of tight sensation in the perineum), No normal rectal tone (Decreased) Back Exam: normal inspection, vertebral tenderness (Lower lumbar/left sacroiliac area), decreased range of motion, muscle spasm Extremity Exam: normal inspection, normal range of motion, pelvis stable, other (Decreased sensations of fine and crude touch left lower extremity.) Neurologic Exam: alert, oriented x 3, cooperative, sensory deficit, other (2+ and symmetrical patellar/Achilles reflexes. Plantars bilateral downgoing.) Skin Exam: normal color SpO2 Interpretation: normal SpO2: 94 O2 Delivery: Room Air Ordered Tests: Active Orders 24 hr Category Date Time Status IV Insertion STAT Care 06/14/23 23:32 Active Medication Summary Discontinued Medications Generic Name Dose Route Start Last Admin Trade Name Freq PRN Reason Stop Dose Admin Dexamethasone Sodium Phosphate 10 mg 06/14/23 23:10 06/14/23 23:25 Dexamethasone Sod Phosphate 10 Mg/Ml IV 06/14/23 23:11 10 mg STAT ONE Administration Dexamethasone Sodium Phosphate Confirm 06/14/23 23:15 Dexamethasone Sod Phosphate 10 Mg/Ml Administered 06/14/23 23:16 Dose 10 mg .ROUTE .STK-MED ONE Hydromorphone HCl 1 mg 06/14/23 23:09 06/14/23 23:25 Hydromorphone 1 Mg/1ml Inj IV 06/14/23 23:10 1 mg STAT ONE Administration Hydromorphone HCl Confirm 06/14/23 23:16 Hydromorphone 1 Mg/1ml Inj Administered 06/14/23 23:17 Dose 1 mg .ROUTE .STK-MED ONE Ondansetron HCl 4 mg 06/14/23 23:09 06/14/23 23:25 Ondansetron Hcl 4 Mg/2 Ml Vial IV 06/14/23 23:10 4 mg STAT ONE Administration Ondansetron HCl Confirm 06/14/23 23:15 Ondansetron Hcl 4 Mg/2 Ml Vial Administered 06/14/23 23:16 Dose 4 mg .ROUTE .STK-MED ONE - Progress Progress: pain not gone completely Progress Note: 06/14/23 23:20 53-year-old female with history of hypertension, anxiety, chronic back pain pr esented in the ER with chief complaint of worsening back pain with radiation to left lower extremity with numbness and tingling sensation of the left. It got worse today and later on she started to have incontinence of urine. Patient reports perineal numbness as well. Patient is able to walk with a little limp because of worsening pain in the left lower extremity which hurts to put any weight. Denies any fall or trauma. No fever or chills reported. No loss of bowel control. Patient exam revealed decreased sensation in the perineum/left lower extremity. Bilateral 2+ symmetric reflexes in lower extremities. Plantars bilateral downgoing. Patient has decreased rectal tone. Straight leg raising test positive bilaterally with right side at 30 degree and left side at 20 degrees. I believe patient is having cauda equina, she is given symptomatic treatment for pain and dexamethasone. [facility] transfer center is called. Discussed with Dr.: Other (Dr. Soto neurosurgery [facility] at 2340) Counseled pt/family regarding: diagnosis, need for follow-up Medical Desision Making - Discussion of managment Care discussed with:: specialist (Dr. Soto neurosurgery at [facility] at 2340) Reviewed:: Need for additional workup Agreed on:: need for follow-up Will see patient: in ED - Risk of complications The pt has a high risk of morbidity or mortality based on: Need for major surgery in patient with known risk factors - Departure Departure Disposition: Transfer Clinical Impression: Cauda equina syndrome Condition: Stable Critical Care Time: Yes Critical Care Time(excluding separately billable procedures): Critical 30-74 mins Referrals: SIDDHARTHA JAEGER JR [Primary Care Provider] - Follow up/PCP as directed
[2023-06-15 00:06] VITALS: BP 111/93; PULSE 78; RESP 18; O2SAT 93
== END 2023-06-15 00:37 | disposition short-term general hospital (02) ==
LOC: ED 22:27
DX: G83.4 Cauda equina syndrome (principal); R32 Unspecified urinary incontinence; M54.50 Low back pain, unspecified; R20.2 Paresthesia of skin; I10 Essential (primary) hypertension; Z79.899 Other long term (current) drug therapy
CPT/HCPCS: 36000; 96374; 96375; 99284; 99291; J1100; J1170; J2405

== ENCOUNTER 2023-07-17 15:49 | Emergency (ER) | payer BC ==
[2023-07-17 16:09] VITALS: BP 101/79; TEMP 98.1
[2023-07-17] MEDS ORDERED: DECADRON 10MG INJ. IM ONE (16:10)
[2023-07-17] MEDS ORDERED: TYLENOL 325 MG PO ONE (16:11)
--- NOTE | 2023-07-17 16:19 | ERPHSYRPT ---
- History of Present Illness Time Seen by Provider: 07/17/23 16:13 Source: patient Exam Limitations: no limitations Patient Subjective Stated Complaint: Pt reports approx two days ago left knee started swelling and she started feeling a popping sensation and having pain. H as an appointment to see orthoDr Lopez in [place] on 08/01/23. Triage Nursing Assessment: Pt alert and oriented x3. No apparent respiratory distress. Accompanied by spouse. Wheeled to ED cot by spouse and transfered with assist of spouse. Left knee swollen, no warmth compared to right knee. Physician History: Patient is a 53-year-old female presents to our ED with left knee pain. Patient has been experiencing left knee pain for approximately 2 days. Patient states that she has been hearing a popping sensation and observed some swelling. Patient scheduled appointment see Dr. Lopez orthopedic surgeon for her knee pain. He yesterday patient states she fell and exacerbated her pain. Patient has not taken pain medication today. Pain described as an ache that is localized. No radiation. No other injuries from her fall. Patient is ambulatory with an antalgic gait. No fever. No nausea vomiting or diaphoresis. Patient voices no other complaints or concerns at this time. Portions of this note were created with voice recognition technology. There may be grammatical, spelling, punctuation or sound alike errors Method of Injury: fell Occurred: yesterday Quality: constant Severity of Pain-Max: moderate Severity of Pain-Current: mild Lower Extremities Pain: knee: left Modifying Factors: Improves With: movement Associated Symptoms: none (Positive Homans' sign left lower extremity.) Allergies/Adverse Reactions: morphine Allergy (Severe, Verified 07/17/23 16:09) Rash divalproex sodium [From Depakote] Adverse Reaction (Mild, Verified 07/17/23 16:09) Fatigue ketorolac [From Toradol] Adverse Reaction (Mild, Verified 07/17/23 16:09) Vomiting phenytoin [From Dilantin] Adverse Reaction (Mild, Verified 07/17/23 16:09) Fatigue dicyclomine [From Bentyl] Adverse Reaction (Verified 07/17/23 16:09) Nausea and Vomiting Home Medications: Clonazepam [Klonopin] 2 mg PO HS PRN 08/19/22 [History] Pregabalin [Lyrica 150Mg] 150 mg PO DAILY 08/19/22 [History] Sertraline HCl [Zoloft] 200 mg PO DAILY 08/19/22 [History] Triamterene/Hydrochlorothiazid [Maxzide 37.5 mg-25 mg Tablet] 1 each PO DAILY 08/19/22 [History] Dextroamphetamine/Amphetamine [Adderall Xr 20 mg Capsule] 20 mg PO BID 07/17/23 [History] Oxycodone HCl/Acetaminophen [Oxycodone-Acetaminophen 5-325] 1 tab PO BID PRN 07/17/23 [History] Hx Tetanus, Diphtheria Vaccination/Date Given: Yes Hx Influenza Vaccination/Date Given: Yes Hx Pneumococcal Vaccination/Date Given: No Travel Risk - International Travel Have you traveled outside of the country in past 3 weeks: No - Coronavirus Screening Are you exhibiting any of the following symptoms?: No Close contact with a COVID-19 positive Pt in past 14-21 Days: No - Vaccine Status Have you recieved a Covid-19 vaccination: 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[employer] - Vaccination Dates Date of 2cond Vaccination (if applicable): 2020 - Review of Systems Constitutional: No Symptoms, No Fever, No Chills Eyes: No Symptoms Ears, Nose, & Throat: No Symptoms Respiratory: No Symptoms, No Cough, No Dyspnea Cardiac: No Symptoms, No Chest Pain, No Edema, No Syncope Abdominal/Gastrointestinal: No Symptoms, No Abdominal Pain, No Nausea, No Vomiting, No Diarrhea Genitourinary Symptoms: No Symptoms, No Dysuria Musculoskeletal: No Symptoms, No Back Pain, No Neck Pain Skin: No Symptoms, No Rash Neurological: No Symptoms, No Dizziness, No Focal Weakness, No Sensory Changes Psychological: No Symptoms Endocrine: No Symptoms Hematologic/Lymphatic: No Symptoms Immunological/Allergic: No Symptoms All Other Systems: Reviewed and Negative - Past Medical History Pertinent Past Medical History: Yes Neurological History: Migraines GI Medical History: Colitis, Diverticulitis History: Other Other Medical History: hx of kidney stones - Past Surgical History Past Surgical History: Yes Gastrointestinal: Hemorrhoidectomy Musculoskeletal: Joint Replacement, Orthopedic Surgery Female Surgical History: Hysterectomy - Social History Smoking Status: Former smoker How long have you smoked: 15 Exposure to second hand smoke: Yes Drug Use: none Patient Lives Alone: No - Nursing Vital Signs Nursing Vital Signs: Initial Vital Signs Temperature 98.1 F 07/17/23 15:58 Pulse Rate 89 08/29/23 15:58 Respiratory Rate 16 07/17/23 15:58 Blood Pressure 101/79 07/17/23 15:58 O2 Sat by Pulse Oximetry 96 07/17/23 15:58 Pain Scale Pain Intensity 10 - Physical Exam General Appearance: no apparent distress, alert Eyes, Ears, Nose, Throat Exam: normal ENT inspection, TMs normal, pharynx normal, moist mucous membranes Neck Exam: non-tender, supple Cardiovascular/Respiratory Exam: chest non-tender, normal breath sounds, regular rate/rhythm, no respiratory distress Gastrointestinal/Abdominal Exam: non-tender, soft, guarding Back Exam: normal inspection, No vertebral tenderness Hips Exam: bilateral: non-tender, normal inspection, normal range of motion, no evidence of injury Legs Exam: bilateral leg: non-tender, normal inspection, normal range of motion, no evidence of injury Knees Exam: right knee: non-tender, normal inspection, normal range of motion, no evidence of injury, left knee: swelling (Mild swelling of the left knee versus the right. No cellulitis. No increased heat production. No lymphangitis. No open or draining lesions. No lymphadenopathy. The involved extremity is neurovascular intact distally. Compartments are soft. Cap refill less than 2 seconds.), other (Knee ligaments are stable. Anterior posterior drawer test are negative. Knee stable to varus and valgus stress.) Ankle Exam: bilateral ankle: non-tender, normal inspection, normal range of motion, no evidence of injury Foot Exam: bilateral foot: non-tender, normal inspection, normal range of motion, no evidence of injury Neuro/Tendon Exam: normal sensation, normal motor functions, normal tendon functions Mental Status Exam: alert, oriented x 3, cooperative Skin Exam: normal color, warm, dry SpO2 Interpretation: normal SpO2: 96 O2 Delivery: Room Air - Course Nursing assessment & vital signs reviewed: Yes - Radiology Exams Knee X-ray Interpretation: Interpreted by me (No fracture or dislocation. Mild to moderate degenerative changes. Mild soft tissue swelling.) - Radiology Ultrasound Exam Venous Lower Extremity Ultrasound: discussed w/radiologist (Discussed with climate change analyst. Venous duplex of left lower extremity negative for DVT) Ordered Tests: Active Orders 24 hr Category Date Time Status Rambo Bandage Application -[facility] STAT Care 07/17/23 17:45 Active KNEE (1 OR 2 VIEW) Stat Exams 07/17/23 16:09 Completed VENOUS UNILAT/LIMITED EXTREMIT [US] Stat Exams 07/17/23 16:10 Completed Medication Summary Discontinued Medications Generic Name Dose Route Start Last Admin Trade Name Elin PRN Reason Stop Dose Admin Acetaminophen 975 mg 07/17/23 16:11 07/17/23 16:27 Acetaminophen 325 Mg Tablet PO 07/17/23 16:12 975 mg STAT ONE Administration Acetaminophen Confirm 07/17/23 16:26 Acetaminophen 325 Mg Tablet Administered 07/17/23 16:27 Dose 975 mg .ROUTE .STK-MED ONE Dexamethasone Sodium Phosphate 8 mg 07/17/23 16:10 07/17/23 16:28 Dexamethasone Sod Phosphate 10 Mg/Ml IM 07/17/23 16:11 8 mg STAT ONE Administration Dexamethasone Sodium Phosphate Confirm 07/17/23 16:26 Dexamethasone Sod Phosphate 10 Mg/Ml Administered 07/17/23 16:27 Dose 10 mg .ROUTE .STK-MED ONE - Progress Progress: improved Progress Note: Patient is a 53-year-old female presents to our ED for evaluation of left knee pain. Patient had knee pain for some time. Patient had an appointment scheduled with an orthopedic doctor. Patient fell and worsened her knee pain. Physical exam reveals some swelling to the left knee and tenderness to the left posterior knee. No pain with small arcs of motion. No signs of infection on my exam. Dominique positive. Ultrasound negative for DVT. X-ray shows mild to early degenerative changes. Patient received a dose of Decadron and Tylenol. Patient reassessed. Patient sleeping in her room. Pain well controlled. Pain worse with weightbearing. Rambo wrap applied. A referral given to our orthopedic clinic for tomorrow at 8 AM. Patient agrees to follow-up as discussed. at bedside agrees to follow-up as well. They declined crutches. They state they have crutches at home. However patient agreed to an Rambo wrap. Patient discharged home. They voiced no other complaints or concerns at this time. Of note patient has Percocet at home. Additional home pain medication not indicated at this time. Patient has allergy to NSAIDs. Complexity of problems addressed is moderate acute complicated. The differential includes benign knee pain versus a more serious cause like DVT. Our work-up required rule out of DVT No critical care time Complex of data reviewed and analyzed is moderate. X-ray of patient's knee independently reviewed by Dr. Sofia. No formal radiology read is available at the present time. Patient received Decadron and Tylenol for pain control. Risk complication and or risk morbidity/mortality of patient management is moderate. A referral to the orthopedic clinic was provided. Patient has Percocet at home for pain control. No additional pain medication indicated at this time. Patient allergic to NSAIDs. Patient agrees to follow-up in the orthopedic clinic as discussed. Vital stable. Time spent to discharge patient is approximately 15 minutes. Plan of care established for shared decision making. No social determinants of health present to impede follow-up. Portions of this note were created with voice recognition technology. There may be grammatical, spelling, punctuation or sound alike errors 07/17/23 17:48 Counseled pt/family regarding: diagnosis, need for follow-up, rad results - Departure Departure Disposition: Home Clinical Impression: Knee pain, Fall Condition: Stable Critical Care Time: No Referrals: SIDDHARTHA JAEGER JR [Primary Care Provider] - Follow up/PCP as directed Instructions: Knee Pain (DC) Additional Instructions: Discharge/Care Plan SYLVIA VOSS was seen on 07/17/23 in the Emergency Room. The patient was counseled regarding Diagnosis,Lab results, Imaging studies, need for follow up and when to return to the Emergency Room. Prescriptions given: Discharge Note I have spoken with the patient and/or caregivers. I have explained the patient's condition, diagnosis and treatment plan based on the information available to me at this time. I have answered the patient's and/or caregiver's questions and addressed any concerns. The patient and/or caregivers have as good understanding of the patient's diagnosis, condition and treatment plan as can be expected at this point. The vital signs have been stable. The patient's condition is stable and appropriate for discharge from the emergency department. The patient will pursue further outpatient evaluation with the primary care physician or other designated or consulting physician as outlined in the disc harge instructions. The patient and/or caregivers are agreeable to this plan of care and follow-up instructions have been explained in detail. The patient and/or caregivers have received these instruction. The patient/and or caregivers are aware that any significant change in condition or worsening of symptoms should prompt an immediate return to this or the closest emergency department or call 911. Outpatient Orders: Ortho Referral Time Frame: 1 Day, Facility: [facility], Location: ORTHO CLINIC
[2023-07-17] MEDS ORDERED: TYLENOL 325 MG ONE (16:26)
[2023-07-17] MEDS ORDERED: DECADRON 10MG INJ. ONE (16:26)
--- NOTE | 2023-07-17 16:32 | XRAY ---
Indication: Pain. Comparison: None 2 view left knee demonstrates minimal medial joint space narrowing/spurring and tiny nonspecific effusion. No other bony, articular, or soft tissue abnormalities.
--- NOTE | 2023-07-17 16:48 | XRAY ---
Indication: Knee pain. DVT. Two-dimensional sonogram and color Doppler imaging of the major venous vessels of the left leg performed. Comparison: None No thrombus seen in the examined deep vessels of the left leg including greater saphenous vein. Veins demonstrate normal compressibility. Venous waveforms are normal with and without augmentation. Impression: Left leg negative for DVT.
[2023-07-17 17:47] VITALS: PULSE 79; RESP 17
[2023-07-17 17:54] VITALS: O2SAT 96
== END 2023-07-17 17:53 | disposition home or self-care (01) ==
LOC: ED 15:49
DX: M25.562 Pain in left knee (principal); W19.XXXA Unspecified fall, initial encounter; Z79.891 Long term (current) use of opiate analgesic; Z79.899 Other long term (current) drug therapy
CPT/HCPCS: 73560; 93971; 96372; 99283; J1100; A9270-GY

== ENCOUNTER 2023-12-07 12:14 | Emergency (ER) | payer BC ==
[2023-12-07 13:06] VITALS: TEMP 98.4
--- NOTE | 2023-12-07 13:07 | ERPHSYRPT ---
- History of Present Illness Time Seen by Provider: 12/07/23 13:07 Source: patient Exam Limitations: no limitations Physician History: This is an overweight 53-year-old white female patient who I spent a lot of time with during this history and physical exam. Patient complains of chronic back pain. In the last several days it has increased in she was actually at [facility] in [facility] and was evaluated by a neurosurgeon per her report. She stated to me that she has been having intermittent periods of time of urinary and bowel incontinence. She stated that the neurosurgeon is well aware of this. Patient was admitted into the hospital for several days and was discharged from that hospital earlier in the week. She was seen by her pain specialist, Dr. Colmenares yesterday. Patient states that her legs felt very weak this morning and she nearly fell at 2 AM and again at 9 AM. I reviewed outside MRI report that was performed approximately 10 days ago. The only significant finding was L5 nerve root was compressed. There was no evidence at any level of any fractures or spinal stenosis. The neurosurgeon is well aware of this finding as well as Dr. Colmenares. I am waiting for the discharge summary from this patient's last visit into [facility] in [facility]. Patient has a history of hypertension, colitis and migraine headaches Timing/Duration: week(s) (Over the last 6 2 to 3 weeks), intermittent Method of Injury: other (No new injury or fall) Back Pain Location: lumbar spine Severity of Pain-Max: moderate Severity of Pain-Current: mild (To moderate) Modifying Factors: Improves With: movement Associated Symptoms: urinary incontinence (Intermittent), loss of bowel control, lower back pain (Intermittent) Previous symptoms: same symptoms as today, recently seen, recent hospitalization, recently treated Allergies/Adverse Reactions: morphine Allergy (Severe, Verified 12/07/23 13:20) Rash divalproex sodium [From Depakote] Adverse Reaction (Mild, Verified 12/07/23 13: 20) Fatigue ketorolac [From Toradol] Adverse Reaction (Mild, Verified 12/07/23 13:20) Vomiting phenytoin [From Dilantin] Adverse Reaction (Mild, Verified 12/07/23 13:20) Fatigue dicyclomine [From Bentyl] Adverse Reaction (Verified 12/07/23 13:20) Nausea and Vomiting Home Medications: Clonazepam [Klonopin] 2 mg PO HS PRN 08/19/22 [History] Pregabalin [Lyrica 150Mg] 150 mg PO DAILY 08/19/22 [History] Sertraline HCl [Zoloft] 200 mg PO DAILY 08/19/22 [History] Triamterene/Hydrochlorothiazid [Maxzide 37.5 mg-25 mg Tablet] 1 each PO DAILY 08/19/22 [History] Estradiol [Zulma] See Rx Instructions .ROUTE .COMPLEX 08/17/23 [History] Hx Tetanus, Diphtheria Vaccination/Date Given: Yes Hx Influenza Vaccination/Date Given: Yes Hx Pneumococcal Vaccination/Date Given: No Travel Risk - International Travel Have you traveled outside of the country in past 3 weeks: No - Coronavirus Screening Are you exhibiting any of the following symptoms?: No Close contact with a COVID-19 positive Pt in past 14-21 Days: No - Vaccine Status Have you recieved a Covid-19 vaccination: 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[employer] - Vaccination Dates Date of 2cond Vaccination (if applicable): 2020 - Review of Systems Constitutional: No Symptoms Eyes: No Symptoms Ears, Nose, & Throat: No Symptoms Respiratory: No Symptoms Cardiac: No Symptoms Abdominal/Gastrointestinal: No Symptoms Genitourinary Symptoms: No Symptoms Musculoskeletal: Back Pain, Fall Skin: No Symptoms Neurological: No Symptoms Psychological: No Symptoms Endocrine: No Symptoms Hematologic/Lymphatic: No Symptoms Immunological/Allergic: No Symptoms All Other Systems: Reviewed and Negative - Past Medical History Pertinent Past Medical History: Yes Neurological History: Migraines GI Medical History: Colitis, Diverticulitis History: Other Other Medical History: hx of kidney stones - Past Surgical History Past Surgical History: Yes Gastrointestinal: Hemorrhoidectomy Musculoskeletal: Joint Replacement, Orthopedic Surgery Female Surgical History: Hysterectomy - Social History Smoking Status: Former smoker How long have you smoked: 15 Exposure to second hand smoke: No Drug Use: none Patient Lives Alone: No - Nursing Vital Signs Nursing Vital Signs: Initial Vital Signs Temperature 98.4 F 12/07/23 13:04 Pulse Rate 100 H 12/07/23 13:04 Respiratory Rate 18 12/07/23 13:04 Blood Pressure 124/89 12/07/23 13:04 O2 Sat by Pulse Oximetry 92 L 12/07/23 13:04 Pain Scale Pain Intensity 9 - Physical Exam General Appearance: no apparent distress, alert, anxiety, obese Eye Exam: PERRL/EOMI, eyes nml inspection Ears, Nose, Throat Exam: normal ENT inspection, moist mucous membranes Neck Exam: normal inspection, non-tender, supple, full range of motion Respiratory Exam: No chest tenderness, No respiratory distress Gastrointestinal Exam: No tenderness, No guarding Pelvic Exam: not done Rectal Exam: not done Back Exam: normal inspection, normal range of motion, muscle spasm (Bilateral lumbar level) Extremity Exam: normal inspection, normal range of motion, pelvis stable Neurologic Exam: alert, oriented x 3, cooperative, language pathologist II-XII nml as tested, normal mood/affect, sensation nml Skin Exam: normal color, warm, dry Lymphatic Exam: No adenopathy SpO2 Interpretation: borderline oxygenation SpO2: 92 O2 Delivery: Room Air - Course Nursing assessment & vital signs reviewed: Yes - Progress Progress: improved, pain not gone completely Progress Note: 12/07/23 15:00 This patient's medical issue is 1 of low complexity. I have reviewed the patient's outpatient MRI that was performed within the last 10 to 12 days. I do not feel this patient needs to be placed in observation for narcotic pain control per her request. I am waiting for the discharge summary from the patient's most recent hospitalization at a facility where she was evaluated by a neurosurgeon and told to follow-up with her pain specialist. Patient also states she has not used any narcotics since she was in the hospital approximately 4 to 5 days ago. Per the patient report, the neurosurgeon is aware of the MRI findings and the patient's symptoms but still discharged the patient to home. 12/07/23 15:33 I reviewed 2 separate discharge summaries from patient's recent admission and discharge from [facility] in [facility]. Ultimately, the patient is not a surgical candidate for any spinal surgery. The neurosurgeon, Dr. Canseco recommended usual analgesic medication and steroid use. During her most recent hospital course there was no episodes of urinary continence or stool incontinence. There was also no concern for saddle anesthesia. I will provide the patient with a single intramuscular dose of Dilaudid 1 mg and Zofran 4 mg ODT. She can follow-up with Dr. Colmenares, her pain specialist next week and contact her neurosurgeon next week to make a follow-up appointment with him Counseled pt/family regarding: diagnosis, need for follow-up - Departure Departure Disposition: Home Clinical Impression: Acute exacerbation of chronic low back pain, Drug-seeking behavior Condition: Stable Critical Care Time: No Referrals: SIDDHARTHA JAEGER JR [Primary Care Provider] - Follow up/PCP as directed Additional Instructions: Call your pain specialist and neurosurgeon on 12/10/2023 to make arrangements for follow-up appointments to discuss future pain management issues
[2023-12-07] MEDS ORDERED: Hydromorphone 1 mg/ml Injection IM ONE (15:37)
[2023-12-07] MEDS ORDERED: ZOFRAN ODT 4 MG PO ONE (15:38)
[2023-12-07] MEDS ORDERED: ZOFRAN ODT 4 MG ONE (15:56)
[2023-12-07] MEDS ORDERED: Hydromorphone 1 mg/ml Injection ONE (15:56)
[2023-12-07 16:04] VITALS: BP 114/52; PULSE 88; RESP 16; O2SAT 93
== END 2023-12-07 16:08 | disposition home or self-care (01) ==
LOC: ED 12:14
DX: G89.29 Other chronic pain (principal); M54.50 Low back pain, unspecified; Z76.5 Malingerer [conscious simulation]; I10 Essential (primary) hypertension; Z79.899 Other long term (current) drug therapy
CPT/HCPCS: 96372; 99283; J1170; Q0162